=== PATIENT | female | born 1960 | race Caucasian/White ===

== ENCOUNTER 2020-08-15 13:37 | Observation (INO) | payer MEDICARE ==
--- NOTE | 2020-08-15 14:21 | EDM.PDOC ---
ED HPI GENERAL MEDICAL PROBLEM - General Chief Complaint: General Stated Complaint: LETHARGIC Time Seen by Provider: 08/15/20 14:00 Source of Information: Reports: Family, Old Records, RN. Denies: Patient History Limitations: Reports: Other (patient not able to provide any information) - History of Present Illness INITIAL COMMENTS - FREE TEXT/NARRATIVE: 60 yo female s/p liver transplant for autoimmune hepatitis is brought in by her for just under a week of progressive lethargy and confusion. Has a pHx of elevated ammonia levels. is not aware of any black or bloody stools. She had an ERCP procedure at the [facility] this past Sunday and her sx's began after that. The has been in communication with the [facility] since then and was told if she got worse to go to the ER. No fever. Onset: Gradual Onset Date: 08/10/20 Duration: Day(s):, Getting Worse Location: Reports: Generalized Quality: Reports: Other (pain not reported. ) Severity: Severe Improves with: Reports: None Worsens with: Reports: Other (time) Context: Reports: Other (See HPI) Associated Symptoms: Reports: Confusion, Loss of Appetite, Malaise. Denies: Diaphoresis, Fever/Chills, Nausea/Vomiting Treatments REVENUE INSPECTOR: Reports: Other (see below) (none) - Related Data Allergies Allergy/AdvReac Type Severity Reaction Status Date / Time morphine Allergy Other Verified 05/24/15 08:34 Home Meds: Home Meds Alendronate Sodium [Fosamax] 70 mg PO Q7D 05/24/15 [History] Calcium Carbonate/Vitamin D3 [Calcium 600 + Vit D 200] 1 tab PO BID 05/24/15 [History] Magnesium Oxide 800 mg PO BID 05/24/15 [History] Multivitamin with Minerals [Multiple Vitamin] 1 tab PO DAILY 05/24/15 [History] QUEtiapine [SEROquel] 50 mg PO DAILY 05/24/15 [History] Tacrolimus [Prograf] 0.5 mg PO Q12HR 05/24/15 [History] predniSONE [Prednisone] 5 mg PO DAILY 05/24/15 [History] ursodioL [Actigal] 300 mg PO BID 05/24/15 [History] Insulin Glarg,Human.Rec.Analog [Lantus Solostar] 10 units SQ QAM 08/15/20 [History] Insulin Lispro [Humalog] 1 units SQ TIDMEALS 08/15/20 [History] Lactulose 45 ml PO TID 08/15/20 [History] Omeprazole 20 mg PO QAM 08/15/20 [History] Past Medical History Neurological History: Reports: Brain Injury Endocrine/Metabolic History: Reports: Diabetes, Type II Immunologic History: Reports: Solid Organ Transplant Other Immunologic History: LIVER - Infectious Disease History Infectious Disease History: Reports: None - Past Surgical History GI Surgical History: Reports: ERCP Other GI Surgeries/Procedures: liver transplant 17 years ago ercp on 08/09/20 with stents 6 total in last year ED ROS GENERAL - Review of Systems Review Of Systems: See Below Constitutional: Reports: Malaise, Decreased Appetite. Denies: Diaphoresis HEENT: Reports: No Symptoms Respiratory: Reports: No Symptoms Cardiovascular: Reports: No Symptoms Endocrine: Reports: Fatigue GI/Abdominal: Reports: No Symptoms : Reports: No Symptoms Musculoskeletal: Reports: No Symptoms Skin: Reports: No Symptoms Neurological: Reports: Confusion ED EXAM, GENERAL - Physical Exam Exam: See Below Exam Limited By: No Limitations General Appearance: Alert, WD/WN, No Apparent Distress, Lethargic Eye Exam: Bilateral Eye: Normal Inspection Ears: Normal External Exam, Normal Canal, Hearing Grossly Normal. No: Hearing Loss Ear Exam: Bilateral Ear: Auricle Normal, Canal Normal Nose: Normal Inspection, No Blood Throat/Mouth: Normal Inspection, Normal Lips, Normal Oropharynx, Normal Voice, No Airway Compromise Head: Atraumatic, Normocephalic Neck: Normal Inspection Respiratory/Chest: No Respiratory Distress, Lungs Clear, Normal Breath Sounds, No Accessory Muscle Use Cardiovascular: Regular Rate, Rhythm, No Edema GI/Abdominal: Normal Bowel Sounds, Soft, Non-Tender, Distended (mild). No: No Distention, Guarding, Rigid, Rebound, Tender Back Exam: Normal Inspection Extremities: Normal Inspection, Normal Range of Motion, Non-Tender, No Pedal Edema Neurological: CN II-XII Intact, No Motor/Sensory Deficits, Confused, Disoriented, Slow to Respond. No: Oriented, Normal Cognition Psychiatric: Flat Affect. No: Anxious, Tearful Skin Exam: Warm, Dry, Intact, Normal Color, No Rash Course - Vital Signs Text/Narrative:: Case discussed with Dr. Maravilla called at [facility] Dr. Williamson aware. Last Recorded V/S: Last Vital Signs Temp 36.6 C 08/15/20 15:09 Pulse 81 08/15/20 15:09 Resp 16 08/15/20 15:09 BP 140/84 08/15/20 15:09 Pulse Ox 96 08/15/20 15:09 - Orders/Labs/Meds Orders: Active Orders 24 hr Category Date Time Status Lactated Ringers [Ringers, Lactated] 1,000 ml Med 08/15/20 14:45 Active IV ASDIRECTED Medication Orders Lactated Ringer's (Ringers, Lactated) 1,000 mls @ 150 mls/hr IV ASDIRECTED ANA Last Admin: 08/15/20 15:02 Dose: 150 mls/hr Documented by: HEMALATHA Labs: Laboratory Tests 08/15/20 08/15/20 08/15/20 Range/Units 14:16 14:16 14:16 WBC 5.2 (4.5-11.0) K/uL RBC 3.99 (3.30-5.50) M/uL Hgb 12.8 (12.0-15.0) g/dL Hct 39.1 (36.0-48.0) % MCV 98 (80-98) fL MCH 32 H (27-31) pg MCHC 33 (32-36) % Plt Count 115 L (150-400) K/uL Sodium 143 (140-148) mmol/L Potassium 4.3 (3.6-5.2) mmol/L Chloride 104 (100-108) mmol/L Carbon Dioxide 25 (21-32) mmol/L Anion Gap 14.0 (5.0-14.0) mmol/L BUN 23 H (7-18) mg/dL Creatinine 1.6 H (0.6-1.0) mg/dL Est Cr Clr Drug Dosing 27.19 mL/min Estimated GFR (MDRD) 33 L (>60) Glucose 302 H (74-106) mg/dL Calcium 10.1 (8.5-10.1) mg/dL Total Bilirubin 1.9 H (0.2-1.0) mg/dL AST 47 H (15-37) U/L ALT 66 (12-78) U/L Alkaline Phosphatase 331 H (46-116) U/L Ammonia (11-32) umol/L Troponin I < 0.017 (0.000-0.056) ng/mL Total Protein 7.1 (6.4-8.2) g/dL Albumin 3.0 L (3.4-5.0) g/dL Globulin 4.1 H (2.3-3.5) g/dL Albumin/Globulin Ratio 0.7 L (1.2-2.2) TSH, Ultra Sensitive 1.509 (0.358-3.740) uIU/mL Urine Color (YELLOW) Urine Appearance (CLEAR) Urine pH (5.0-8.0) Ur Specific [place] (1.008-1.030) Urine Protein (NEGATIVE) mg/dL Urine Glucose (UA) (NEGATIVE) mg/dL Urine Ketones (NEGATIVE) mg/dL Urine Occult Blood (NEGATIVE) Urine Nitrite (NEGATIVE) Urine Bilirubin (NEGATIVE) Urine Urobilinogen (0.2-1.0) EU/dL Ur Leukocyte Esterase (NEGATIVE) Urine RBC (0-5) Urine WBC (0-5) Ur Epithelial Cells Amorphous Sediment Urine Bacteria Urine Mucus 08/15/20 08/15/20 Range/Units 14:16 14:43 WBC (4.5-11.0) K/uL RBC (3.30-5.50) M/uL Hgb (12.0-15.0) g/dL Hct (36.0-48.0) % MCV (80-98) fL MCH (27-31) pg MCHC (32-36) % Plt Count (150-400) K/uL Sodium (140-148) mmol/L Potassium (3.6-5.2) mmol/L Chloride (100-108) mmol/L Carbon Dioxide (21-32) mmol/L Anion Gap (5.0-14.0) mmol/L BUN (7-18) mg/dL Creatinine (0.6-1.0) mg/dL Est Cr Clr Drug Dosing mL/min Estimated GFR (MDRD) (>60) Glucose (74-106) mg/dL Calcium (8.5-10.1) mg/dL Total Bilirubin (0.2-1.0) mg/dL AST (15-37) U/L ALT (12-78) U/L Alkaline Phosphatase (46-116) U/L Ammonia 114 H (11-32) umol/L Troponin I (0.000-0.056) ng/mL Total Protein (6.4-8.2) g/dL Albumin (3.4-5.0) g/dL Globulin (2.3-3.5) g/dL Albumin/Globulin Ratio (1.2-2.2) TSH, Ultra Sensitive (0.358-3.740) uIU/mL Urine Color Yellow (YELLOW) Urine Appearance Clear (CLEAR) Urine pH 7.0 (5.0-8.0) Ur Specific [place] 1.020 (1.008-1.030) Urine Protein Negative (NEGATIVE) mg/dL Urine Glucose (UA) 100 H (NEGATIVE) mg/dL Urine Ketones Negative (NEGATIVE) mg/dL Urine Occult Blood Negative (NEGATIVE) Urine Nitrite Negative (NEGATIVE) Urine Bilirubin Negative (NEGATIVE) Urine Urobilinogen 1.0 (0.2-1.0) EU/dL Ur Leukocyte Esterase Negative (NEGATIVE) Urine RBC 0-5 (0-5) Urine WBC 0-5 (0-5) Ur Epithelial Cells Rare Amorphous Sediment Moderate Urine Bacteria Rare Urine Mucus Not seen Meds: Medications Generic Name Dose Route Start Last Admin Trade Name Freq PRN Reason Stop Dose Admin Lactated Ringer's 1,000 mls @ 150 mls/hr 08/15/20 14:45 08/15/20 15:02 Ringers, Lactated IV 150 mls/hr ASDIRECTED ANA Administration Departure - Departure Time of Disposition: 15:30 Disposition: Admitted As Inpatient 67 Condition: Fair Clinical Impression: Hyperammonemia, Confusion - Discharge Information *PRESCRIPTION DRUG MONITORING PROGRAM REVIEWED*: Not Applicable *COPY OF PRESCRIPTION DRUG MONITORING REPORT IN PATIENT VIRGILIO: Not Applicable Referrals: Elías Ragsdale NP [Primary Care Provider] - Forms: ED Department Discharge Sepsis Event Note (ED) - Focused Exam Vital Signs: Vital Signs Temp Pulse Resp BP Pulse Ox 08/15/20 15:09 36.6 C 81 16 140/84 96 08/15/20 14:27 36.6 C 86 16 132/93 H 98 08/15/20 14:00 36.6 C 86 16 132/93 H 98 - My Orders Last 24 Hours: My Active Orders 08/15/20 14:45 Lactated Ringers [Ringers, Lactated] 1,000 ml IV ASDIRECTED - Assessment/Plan Last 24 Hours: My Active Orders 08/15/20 14:45 Lactated Ringers [Ringers, Lactated] 1,000 ml IV ASDIRECTED
[2020-08-15] MEDS ORDERED: Lactated Ringers 1,000 ML IV SCH (14:45)
[2020-08-15] MEDS ORDERED: Lactulose Soln 10 GM/15 ML 15 ML UD Cup PO ONE ×2 (15:54→21:00)
--- NOTE | 2020-08-15 16:03 | PCM.HP.2 ---
H&P History of Present Illness - General Date of Service: 08/15/20 Admit Problem/Dx: Admission Diagnosis/Problem Admission Diagnosis/Problem Hepatic encephalopathy Source of Information: Patient, Family, Provider History Limitations: Reports: Altered Mental Status (hepatic encephalopathy) - History of Present Illness Initial Comments - Free Text/Narative: CC: she's been going downhill HPI: Vita presents to the emergency room today with weakness and confusion. She is quite confused and provides only a little bit of the history. Most of the history is gathered from her . He reports that since her ERCP about 1 week ago she has been going downhill with increasing weakness and increasing confusion. She has been having more difficulty getting around and has been sleeping much of the day. Because she sleeps so much her food and fluid intake has gone downhill some but more so over the past 24 hours. Her last bowel movement was about 2 days ago. She has not complained of any nausea and he has not noticed any vomiting. She has not appeared short of breath. He has been checking her temperature periodically and has not measured any fevers. She does complain that she "cannot walk" and that she "cannot see" but is not really able to further describe the symptoms. She does not complain of any abdominal pain. She has not had any skin rashes. She had been getting her medications up until this morning when she refused to take her lactulose. Work-up in the emergency room revealed an ammonia level of 114. Creatinine is up at 1.6 but I am not sure what her baseline is. Bilirubin is 1.9 and alkaline phosphatase is over 300. Her case was discussed with the on-call liver specialist at the [facility]. He recommended hydration and ayaka ating the elevated ammonia level. If she does not improve then additional work- up may be needed and potentially transfer. He did note that they feel her liver transplant has been starting to fail and becoming cirrhotic. - Related Data Allergies/Adverse Reactions: Allergies Allergy/AdvReac Type Severity Reaction Status Date / Time morphine Allergy Other Verified 05/24/15 08:34 Home Medications: Home Meds Alendronate Sodium [Fosamax] 70 mg PO Q7D 05/24/15 [History] Calcium Carbonate/Vitamin D3 [Calcium 600 + Vit D 200] 1 tab PO BID 05/24/15 [History] Magnesium Oxide 800 mg PO BID 05/24/15 [History] Multivitamin with Minerals [Multiple Vitamin] 1 tab PO DAILY 05/24/15 [History] QUEtiapine [SEROquel] 50 mg PO DAILY 05/24/15 [History] Tacrolimus [Prograf] 0.5 mg PO Q12HR 05/24/15 [History] predniSONE [Prednisone] 5 mg PO DAILY 05/24/15 [History] ursodioL [Actigal] 300 mg PO BID 05/24/15 [History] Insulin Glarg,Human.Rec.Analog [Lantus Solostar] 12 units SQ QAM 08/15/20 [History] Insulin Lispro [Humalog] 1 units SQ TIDMEALS 08/15/20 [History] Lactulose 45 ml PO TID 08/15/20 [History] Omeprazole 20 mg PO QAM 08/15/20 [History] Past Medical History Neurological History: Reports: Brain Injury Endocrine/Metabolic History: Reports: Diabetes, Type II Immunologic History: Reports: Solid Organ Transplant Other Immunologic History: LIVER - Infectious Disease History Infectious Disease History: Reports: None - Past Surgical History GI Surgical History: Reports: ERCP Other GI Surgeries/Procedures: liver transplant 17 years ago ercp on 08/09/20 with stents 6 total in last year Social & Family History - Family History GI: Denies: Cirrhosis - Tobacco Use Tobacco Use Status *Q: Former Tobacco User Years of Tobacco use: 25 Used Tobacco, but Quit: Yes Month/Year Tobacco Last Used: 02/2003 - Caffeine Use Caffeine Use: Reports: Coffee - Alcohol Use Alcohol Use History: No - Recreational Drug Use Recreational Drug Use: No H&P Review of Systems - Review of Systems: Review Of Systems: See Below Free Text/Narrative: A complete 12 point review of systems was obtained. Pertinent positives and negatives are noted in the history of present illness. All other systems were reviewed and were negative except as noted. Exam - Exam Exam: See Below - Vital Signs Vital Signs: Last Vital Signs Temp 36.6 C 08/15/20 15:09 Pulse 81 08/15/20 15:09 Resp 16 08/15/20 15:09 BP 140/84 08/15/20 15:09 Pulse Ox 96 08/15/20 15:09 Weight: 52.163 kg - Exam Quality Assessment: No: Supplemental Oxygen General: Alert, Mild Distress. No: Oriented, Cooperative HEENT: Conjunctiva Clear. No: Mucosa Moist & [place] (Dry), Scleral Icterus Neck: Supple, Trachea Midline. No: Lymphadenopathy Lungs: Clear to Auscultation, Normal Respiratory Effort. No: Wheezing Cardiovascular: Regular Rate, Regular Rhythm. No: Systolic Murmur GI/Abdominal Exam: Normal Bowel Sounds, Soft, Non-Tender, No Distention, No Mass. No: Hepatomegaly Back Exam: Normal Inspection, Full Range of Motion, Vertebral Tenderness (Mild mid back. No visible deformity) Extremities: No Pedal Edema. No: Increased Warmth Skin: Warm, Dry, Wound (1 cm scratch left mid josé) Neuro Extensive - Mental Status: Alert, Slow Response to Commands. No: Oriented x3 Neuro Extensive - Motor, Sensory, Reflexes: Other (Unable to assess for asterixis as patient is not cooperative with examination). No: Dysarthria, Abnormal Motor, Tremor Psychiatric: Alert, Normal Affect. No: Agitated - Patient Data Lab Results Last 24 hrs: Laboratory Results - last 24 hr 08/15/20 08/15/20 08/15/20 Range/Units 14:16 14:16 14:16 WBC 5.2 (4.5-11.0) K/uL RBC 3.99 (3.30-5.50) M/uL Hgb 12.8 (12.0-15.0) g/dL Hct 39.1 (36.0-48.0) % MCV 98 (80-98) fL MCH 32 H (27-31) pg MCHC 33 (32-36) % Plt Count 115 L (150-400) K/uL Sodium 143 (140-148) mmol/L Potassium 4.3 (3.6-5.2) mmol/L Chloride 104 (100-108) mmol/L Carbon Dioxide 25 (21-32) mmol/L Anion Gap 14.0 (5.0-14.0) mmol/L BUN 23 H (7-18) mg/dL Creatinine 1.6 H (0.6-1.0) mg/dL Est Cr Clr Drug Dosing 27.19 mL/min Estimated GFR (MDRD) 33 L (>60) Glucose 302 H (74-106) mg/dL Calcium 10.1 (8.5-10.1) mg/dL Total Bilirubin 1.9 H (0.2-1.0) mg/dL AST 47 H (15-37) U/L ALT 66 (12-78) U/L Alkaline Phosphatase 331 H (46-116) U/L Ammonia (11-32) umol/L Troponin I < 0.017 (0.000-0.056) ng/mL Total Protein 7.1 (6.4-8.2) g/dL Albumin 3.0 L (3.4-5.0) g/dL Globulin 4.1 H (2.3-3.5) g/dL Albumin/Globulin Ratio 0.7 L (1.2-2.2) TSH, Ultra Sensitive 1.509 (0.358-3.740) uIU/mL Urine Color (YELLOW) Urine Appearance (CLEAR) Urine pH (5.0-8.0) Ur Specific [place] (1.008-1.030) Urine Protein (NEGATIVE) mg/dL Urine Glucose (UA) (NEGATIVE) mg/dL Urine Ketones (NEGATIVE) mg/dL Urine Occult Blood (NEGATIVE) Urine Nitrite (NEGATIVE) Urine Bilirubin (NEGATIVE) Urine Urobilinogen (0.2-1.0) EU/dL Ur Leukocyte Esterase (NEGATIVE) Urine RBC (0-5) Urine WBC (0-5) Ur Epithelial Cells Amorphous Sediment Urine Bacteria Urine Mucus 08/15/20 08/15/20 Range/Units 14:16 14:43 WBC (4.5-11.0) K/uL RBC (3.30-5.50) M/uL Hgb (12.0-15.0) g/dL Hct (36.0-48.0) % MCV (80-98) fL MCH (27-31) pg MCHC (32-36) % Plt Count (150-400) K/uL Sodium (140-148) mmol/L Potassium (3.6-5.2) mmol/L Chloride (100-108) mmol/L Carbon Dioxide (21-32) mmol/L Anion Gap (5.0-14.0) mmol/L BUN (7-18) mg/dL Creatinine (0.6-1.0) mg/dL Est Cr Clr Drug Dosing mL/min Estimated GFR (MDRD) (>60) Glucose (74-106) mg/dL Calcium (8.5-10.1) mg/dL Total Bilirubin (0.2-1.0) mg/dL AST (15-37) U/L ALT (12-78) U/L Alkaline Phosphatase (46-116) U/L Ammonia 114 H (11-32) umol/L Troponin I (0.000-0.056) ng/mL Total Protein (6.4-8.2) g/dL Albumin (3.4-5.0) g/dL Globulin (2.3-3.5) g/dL Albumin/Globulin Ratio (1.2-2.2) TSH, Ultra Sensitive (0.358-3.740) uIU/mL Urine Color Yellow (YELLOW) Urine Appearance Clear (CLEAR) Urine pH 7.0 (5.0-8.0) Ur Specific [place] 1.020 (1.008-1.030) Urine Protein Negative (NEGATIVE) mg/dL Urine Glucose (UA) 100 H (NEGATIVE) mg/dL Urine Ketones Negative (NEGATIVE) mg/dL Urine Occult Blood Negative (NEGATIVE) Urine Nitrite Negative (NEGATIVE) Urine Bilirubin Negative (NEGATIVE) Urine Urobilinogen 1.0 (0.2-1.0) EU/dL Ur Leukocyte Esterase Negative (NEGATIVE) Urine RBC 0-5 (0-5) Urine WBC 0-5 (0-5) Ur Epithelial Cells Rare Amorphous Sediment Moderate Urine Bacteria Rare Urine Mucus Not seen Result Diagrams: 08/15/20 14:16 08/15/20 14:16 Jonah Results Last 24 hrs: Microbiology 08/15/20 15:15 Stool Occult Blood (JONAH) - Final Stool / Feces - Stool, Formed Sepsis Event Note - Evaluation Sepsis Screening Result: No Definite Risk - Focused Exam Vital Signs: Vital Signs Temp Pulse Resp BP Pulse Ox 08/15/20 15:09 36.6 C 81 16 140/84 96 08/15/20 14:27 36.6 C 86 16 132/93 H 98 08/15/20 14:00 36.6 C 86 16 132/93 H 98 *Q Meaningful Use (ADM) - VTE Risk Assess *Q Each Risk Factor Represents 1 Point: Age 41 - 59 years Total Score 1 Point Risk Factors: 1 Each Risk Factor Represents 2 Points: None Total Score 2 Point Risk Factors: 0 Each Risk Factor Represents 3 Points: None Total Score 3 Point Risk Factors: 0 Each Risk Factor Represents 5 Points: None Total Score 5 Point Risk Factors: 0 Venous Thromboembolism Risk Factor Score *Q: 1 - Problem List (1) Hyperammonemia SNOMED Code(s): 1500139 ICD Code: E72.20 - DISORDER OF UREA CYCLE METABOLISM, UNSPECIFIED Status: Acute Current Visit: Yes (2) Acute hypoactive delirium due to another medical condition SNOMED Code(s): 1581262, 174290027, 949780241 ICD Code: F05 - DELIRIUM DUE TO KNOWN PHYSIOLOGICAL CONDITION Status: Acute Current Visit: Yes (3) Autoimmune hepatitis SNOMED Code(s): 416573108 ICD Code: K75.4 - AUTOIMMUNE HEPATITIS Status: Chronic Current Visit: Yes (4) Diabetes mellitus, insulin dependent (IDDM), controlled SNOMED Code(s): 40245781, 325471180, 202222329 ICD Code: HHW2077 - Status: Chronic Current Visit: Yes Problem List Initiated/Reviewed/Updated: Yes Orders Last 24hrs: Active Orders 24 hr Category Date Time Status Patient Status Manage Transfer [TRANSFER] Routine ADT 08/15/20 15:56 Ordered Lactated Ringers [Ringers, Lactated] 1,000 ml Med 08/15/20 14:45 Active IV ASDIRECTED Resuscitation Status Routine Resus Stat 08/15/20 15:58 Ordered Medication Orders Lactated Ringer's (Ringers, Lactated) 1,000 mls @ 150 mls/hr IV ASDIRECTED ANA Last Admin: 08/15/20 15:02 Dose: 150 mls/hr Documented by: HEMALATHA Assessment/Plan Comment:: ASSESSMENT AND PLAN - Hypoactive delirium-ammonia level elevated and I suspect this is the culprit. Transplant team reports that her transplant is starting to become cirrhotic. She is already on pretty good-sized doses of lactulose. No evidence for infection that I can find. She may be a little dehydrated. Hemoccult is positive but hemoglobin is normal so I doubt she has a clinically significant GI bleed. She did have an ERCP 1 week ago but hepatic panel numbers are not very impressive. She has been taking medications other than lactulose this morning. -IV fluids overnight -40 g of lactulose now and again tonight -Repeat ammonia level in the morning -Anticipate transition to previous dosing tomorrow morning -Consider additional work-up such as CT scan if not improving Insulin-dependent diabetes mellitus-moderate elevation of blood sugar at this time. Sugars are normally fairly well controlled. -Continue home dose of Lantus -6 units of short acting insulin with meals -Sliding scale insulin History of autoimmune hepatitis-liver transplant about 17 years ago. 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 -Continue immunosuppression -Outpatient follow-up with the [facility] Maintenance issues - -DVT prophylaxis-mechanical -GI prophylaxis-PPI -[id number] -Tate catheter-not indicated CODE STATUS -DNR/DNI Admission justification -this patient will be admitted for observation for titration of lactulose and repeat ammonia monitoring. Disposition -I anticipate discharge home after the hospital stay Primary care physician -liver transplant service through the [facility] Nomi Willimason M.D. - Mortality Measure Prognosis:: Good
[2020-08-15] MEDS ORDERED: Albuterol 0.083% 2.5 MG/3 ML Neb Soln NEB PRN (16:27)
[2020-08-15] MEDS ORDERED: Ondansetron 4 MG Tab.DIS PO PRN (16:27)
[2020-08-15] MEDS ORDERED: Haloperidol Lactate 5 MG/ML SDV IVPUSH PRN (16:27)
[2020-08-15] MEDS ORDERED: Acetaminophen 325 MG Tab PO PRN (16:27)
[2020-08-15] MEDS ORDERED: Tacrolimus 0.5 MG Cap PO SCH (16:27)
[2020-08-15] MEDS ORDERED: Ondansetron 4 MG/2 ML SDV IV PRN (16:27)
[2020-08-15] MEDS ORDERED: Insulin Lispro 100 Unit/ML 3 ML KwikPen SUBCUT SCH (17:00)
[2020-08-15] MEDS ORDERED: LACTULOSE 10 GM/15 ML PO ONE ×2 (17:45→21:00)
[2020-08-15] MEDS ORDERED: Pantoprazole 40 MG Vial IV ONE (18:00)
[2020-08-15] MEDS: Insulin Lispro 100 Unit/ML 3 ML KwikPen SUBCUT SCH ×2 (18:24→20:41)
[2020-08-15] MEDS: Insulin Lispro 100 Unit/ML 3 ML KwikPen*PT OWN MED SUBCUT SCH ×4 (18:37→21:15)
[2020-08-15] MEDS ORDERED: TACROLIMUS 0.5 MG PO SCH (20:30)
[2020-08-15] MEDS: Magnesium Oxide 400 MG Tab PO SCH (21:01)
[2020-08-15] MEDS: Calcium Carbonate/Vitamin D3 1500 MG-400 Units Tab PO SCH (21:01)
[2020-08-15] MEDS: Melatonin 3 MG Tab PO SCH (21:04)
[2020-08-15] MEDS: Lactated Ringers 1,000 ML IV SCH (22:31)
[2020-08-16] MEDS: Lactated Ringers 1,000 ML IV SCH (06:08)
[2020-08-16] MEDS ORDERED: Pantoprazole 40 MG Tab.CR PO SCH (07:30)
[2020-08-16] MEDS: Insulin Lispro 100 Unit/ML 3 ML KwikPen*PT OWN MED SUBCUT SCH ×2 (07:49)
[2020-08-16] MEDS: Multivitamins with Iron/Calcium/Folic Acid/Minerals Tab PO SCH (08:53)
[2020-08-16] MEDS: Calcium Carbonate/Vitamin D3 1500 MG-400 Units Tab PO SCH ×2 (08:53→22:01)
[2020-08-16] MEDS: Magnesium Oxide 400 MG Tab PO SCH ×2 (08:53→21:58)
[2020-08-16] MEDS: OMEPRAZOLE 20 MG CAP *PT OWN MED PO SCH (08:53)
[2020-08-16] MEDS: Insulin Glargine,Human Rec. Analog 100 Units/ML 3 ML Pen SUBCUT SCH (08:55)
[2020-08-16] MEDS: predniSONE 5 MG **PTOM PO SCH (08:56)
[2020-08-16] MEDS: TACROLIMUS 0.5 MG PO SCH ×2 (08:57→21:59)
[2020-08-16] MEDS ORDERED: Lactulose Soln 10 GM/15 ML 15 ML UD Cup PO SCH (09:00)
[2020-08-16] MEDS ORDERED: INSULIN GLARGINE HUMAN REC ANALOG 100 UNIT/ML SUBCUT SCH (09:00)
[2020-08-16] MEDS ORDERED: LACTULOSE 10 GM/15 ML PO SCH ×2 (09:00)
[2020-08-16] MEDS ORDERED: QUEtiapine 25 MG Tab PO SCH (09:00)
[2020-08-16] MEDS ORDERED: Insulin Glargine,Human Rec. Analog 100 Units/ML 3 ML Pen SUBCUT SCH (09:00)
[2020-08-16] MEDS ORDERED: PREDNISONE 5 MG PO SCH (09:00)
[2020-08-16] MEDS ORDERED: predniSONE 5 MG Tab PO SCH (09:00)
[2020-08-16] MEDS: LACTULOSE 10 GM/15 ML PO SCH ×3 (09:41→21:58)
--- NOTE | 2020-08-16 11:12 | PCM.PN ---
- General Info Date of Service: 08/16/20 Subjective Update: Ms. Catherine has remained lethargic and confused since admission yesterday. She has received extra lactulose with no improvement in encephalopathy or ammonia level. She is unable to provide a meaningful history concerning symptoms or review of systems because of the encephalopathy. - Patient Data Vitals - Most Recent: Last Vital Signs Temp 97.3 F 08/16/20 09:17 Pulse 86 08/16/20 09:17 Resp 16 08/16/20 09:17 BP 110/82 08/16/20 09:17 Pulse Ox 99 08/16/20 09:17 Weight - Most Recent: 117 lb 4.575 oz I&O - Last 24 Hours: Intake & Output 08/15/20 08/16/20 08/16/20 22:59 06:59 14:59 Intake Total 120 1386 360 Output Total 80 1050 Balance -66$ 336 376 Lab Results Last 24 Hours: Laboratory Results - last 24 hr 08/15/20 08/15/20 08/15/20 Range/Units 14:16 14:16 14:16 WBC 5.2 (4.5-11.0) K/uL RBC 3.99 (3.30-5.50) M/uL Hgb 12.8 (12.0-15.0) g/dL Hct 39.1 (36.0-48.0) % MCV 98 (80-98) fL MCH 32 H (27-31) pg MCHC 33 (32-36) % Plt Count 115 L (150-400) K/uL PT (9.5-12.0) sec INR (0.80-1.20) Sodium 143 (140-148) mmol/L Potassium 4.3 (3.6-5.2) mmol/L Chloride 104 (100-108) mmol/L Carbon Dioxide 25 (21-32) mmol/L Anion Gap 14.0 (5.0-14.0) mmol/L BUN 23 H (7-18) mg/dL Creatinine 1.6 H (0.6-1.0) mg/dL Est Cr Clr Drug Dosing 27.19 mL/min Estimated GFR (MDRD) 33 L (>60) Glucose 302 H (74-106) mg/dL POC Glucose (74-106) mg/dL Calcium 10.1 (8.5-10.1) mg/dL Total Bilirubin 1.9 H (0.2-1.0) mg/dL AST 47 H (15-37) U/L ALT 66 (12-78) U/L Alkaline Phosphatase 331 H (46-116) U/L Ammonia (11-32) umol/L Troponin I < 0.017 (0.000-0.056) ng/mL Total Protein 7.1 (6.4-8.2) g/dL Albumin 3.0 L (3.4-5.0) g/dL Globulin 4.1 H (2.3-3.5) g/dL Albumin/Globulin Ratio 0.7 L (1.2-2.2) TSH, Ultra Sensitive 1.509 (0.358-3.740) uIU/mL Urine Color (YELLOW) Urine Appearance (CLEAR) Urine pH (5.0-8.0) Ur Specific Sibley (1.008-1.030) Urine Protein (NEGATIVE) mg/dL Urine Glucose (UA) (NEGATIVE) mg/dL Urine Ketones (NEGATIVE) mg/dL Urine Occult Blood (NEGATIVE) Urine Nitrite (NEGATIVE) Urine Bilirubin (NEGATIVE) Urine Urobilinogen (0.2-1.0) EU/dL Ur Leukocyte Esterase (NEGATIVE) Urine RBC (0-5) Urine WBC (0-5) Ur Epithelial Cells Amorphous Sediment Urine Bacteria Urine Mucus 08/15/20 08/15/20 08/15/20 Range/Units 14:16 14:43 16:37 WBC (4.5-11.0) K/uL RBC (3.30-5.50) M/uL Hgb (12.0-15.0) g/dL Hct (36.0-48.0) % MCV (80-98) fL MCH (27-31) pg MCHC (32-36) % Plt Count (150-400) K/uL PT (9.5-12.0) sec INR (0.80-1.20) Sodium (140-148) mmol/L Potassium (3.6-5.2) mmol/L Chloride (100-108) mmol/L Carbon Dioxide (21-32) mmol/L Anion Gap (5.0-14.0) mmol/L BUN (7-18) mg/dL Creatinine (0.6-1.0) mg/dL Est Cr Clr Drug Dosing mL/min Estimated GFR (MDRD) (>60) Glucose (74-106) mg/dL POC Glucose 249 H (74-106) mg/dL Calcium (8.5-10.1) mg/dL Total Bilirubin (0.2-1.0) mg/dL AST (15-37) U/L ALT (12-78) U/L Alkaline Phosphatase (46-116) U/L Ammonia 114 H (11-32) umol/L Troponin I (0.000-0.056) ng/mL Total Protein (6.4-8.2) g/dL Albumin (3.4-5.0) g/dL Globulin (2.3-3.5) g/dL Albumin/Globulin Ratio (1.2-2.2) TSH, Ultra Sensitive (0.358-3.740) uIU/mL Urine Color Yellow (YELLOW) Urine Appearance Clear (CLEAR) Urine pH 7.0 (5.0-8.0) Ur Specific Sibley 1.020 (1.008-1.030) Urine Protein Negative (NEGATIVE) mg/dL Urine Glucose (UA) 100 H (NEGATIVE) mg/dL Urine Ketones Negative (NEGATIVE) mg/dL Urine Occult Blood Negative (NEGATIVE) Urine Nitrite Negative (NEGATIVE) Urine Bilirubin Negative (NEGATIVE) Urine Urobilinogen 1.0 (0.2-1.0) EU/dL Ur Leukocyte Esterase Negative (NEGATIVE) Urine RBC 0-5 (0-5) Urine WBC 0-5 (0-5) Ur Epithelial Cells Rare Amorphous Sediment Moderate Urine Bacteria Rare Urine Mucus Not seen 08/15/20 08/16/20 08/16/20 Range/Units 20:44 05:17 05:17 WBC 5.4 (4.5-11.0) K/uL RBC 3.45 (3.30-5.50) M/uL Hgb 11.5 L (12.0-15.0) g/dL Hct 33.8 L (36.0-48.0) % MCV 98 (80-98) fL MCH 33 H (27-31) pg MCHC 34 (32-36) % Plt Count 106 L (150-400) K/uL PT 11.3 (9.5-12.0) sec INR 1.04 (0.80-1.20) Sodium (140-148) mmol/L Potassium (3.6-5.2) mmol/L Chloride (100-108) mmol/L Carbon Dioxide (21-32) mmol/L Anion Gap (5.0-14.0) mmol/L BUN (7-18) mg/dL Creatinine (0.6-1.0) mg/dL Est Cr Clr Drug Dosing mL/min Estimated GFR (MDRD) (>60) Glucose (74-106) mg/dL POC Glucose 358 H (74-106) mg/dL Calcium (8.5-10.1) mg/dL Total Bilirubin (0.2-1.0) mg/dL AST (15-37) U/L ALT (12-78) U/L Alkaline Phosphatase (46-116) U/L Ammonia (11-32) umol/L Troponin I (0.000-0.056) ng/mL Total Protein (6.4-8.2) g/dL Albumin (3.4-5.0) g/dL Globulin (2.3-3.5) g/dL Albumin/Globulin Ratio (1.2-2.2) TSH, Ultra Sensitive (0.358-3.740) uIU/mL Urine Color (YELLOW) Urine Appearance (CLEAR) Urine pH (5.0-8.0) Ur Specific Sibley (1.008-1.030) Urine Protein (NEGATIVE) mg/dL Urine Glucose (UA) (NEGATIVE) mg/dL Urine Ketones (NEGATIVE) mg/dL Urine Occult Blood (NEGATIVE) Urine Nitrite (NEGATIVE) Urine Bilirubin (NEGATIVE) Urine Urobilinogen (0.2-1.0) EU/dL Ur Leukocyte Esterase (NEGATIVE) Urine RBC (0-5) Urine WBC (0-5) Ur Epithelial Cells Amorphous Sediment Urine Bacteria Urine Mucus 08/16/20 08/16/20 08/16/20 Range/Units 05:17 05:17 07:29 WBC (4.5-11.0) K/uL RBC (3.30-5.50) M/uL Hgb (12.0-15.0) g/dL Hct (36.0-48.0) % MCV (80-98) fL MCH (27-31) pg MCHC (32-36) % Plt Count (150-400) K/uL PT (9.5-12.0) sec INR (0.80-1.20) Sodium 146 (140-148) mmol/L Potassium 3.9 (3.6-5.2) mmol/L Chloride 108 (100-108) mmol/L Carbon Dioxide 26 (21-32) mmol/L Anion Gap 12.3 (5.0-14.0) mmol/L BUN 17 (7-18) mg/dL Creatinine 1.5 H (0.6-1.0) mg/dL Est Cr Clr Drug Dosing 29.01 mL/min Estimated GFR (MDRD) 36 L (>60) Glucose 280 H (74-106) mg/dL POC Glucose 274 H (74-106) mg/dL Calcium 8.9 (8.5-10.1) mg/dL Total Bilirubin 1.5 H (0.2-1.0) mg/dL AST 39 H (15-37) U/L ALT 55 (12-78) U/L Alkaline Phosphatase 282 H (46-116) U/L Ammonia 114 H (11-32) umol/L Troponin I (0.000-0.056) ng/mL Total Protein 6.0 L (6.4-8.2) g/dL Albumin 2.4 L (3.4-5.0) g/dL Globulin 3.6 H (2.3-3.5) g/dL Albumin/Globulin Ratio 0.7 L (1.2-2.2) TSH, Ultra Sensitive (0.358-3.740) uIU/mL Urine Color (YELLOW) Urine Appearance (CLEAR) Urine pH (5.0-8.0) Ur Specific Sibley (1.008-1.030) Urine Protein (NEGATIVE) mg/dL Urine Glucose (UA) (NEGATIVE) mg/dL Urine Ketones (NEGATIVE) mg/dL Urine Occult Blood (NEGATIVE) Urine Nitrite (NEGATIVE) Urine Bilirubin (NEGATIVE) Urine Urobilinogen (0.2-1.0) EU/dL Ur Leukocyte Esterase (NEGATIVE) Urine RBC (0-5) Urine WBC (0-5) Ur Epithelial Cells Amorphous Sediment Urine Bacteria Urine Mucus Jonah Results Last 24 Hours: Microbiology 08/15/20 15:15 Stool Occult Blood (JONAH) - Final Stool / Feces - Stool, Formed Med Orders - Current: Current Medications Acetaminophen (Acetaminophen 325 Mg Tab) 650 mg PO Q4H PRN PRN Reason: Pain (Mild 1-3)/fever Albuterol (Albuterol 0.083% 2.5 Mg/3 Ml Neb Soln) 2.5 mg NEB Q4H PRN PRN Reason: Shortness Of Breath/wheezing Calcium Carbonate (Calcium Carbonate/Vitamin D3 1500 Mg-400 Units Tab) 1 tab PO BID [facility] Last Admin: 08/16/20 08:53 Dose: 1 tab Documented by: Haloperidol Lactate (Haloperidol Lactate 5 Mg/Ml Sdv) 1 mg IVPUSH Q4H PRN PRN Reason: Agitation Last Admin: 08/15/20 23:29 Dose: 1 mg Documented by: Insulin Glargine (Insulin Glargine,Human Rec. Analog 100 Units/Ml 3 Ml Pen) 12 units SUBCUT QAM [facility] Last Admin: 08/16/20 08:55 Dose: 12 unit Documented by: Insulin Human Lispro (Insulin Lispro 100 Unit/Ml 3 Ml Kwikpen) 6 unit SUBCUT TIDMEALS [facility] Insulin Human Lispro (Insulin Lispro 100 Unit/Ml 3 Ml Kwikpen) 0 unit SUBCUT QIDACANDBED [facility]; Protocol Lactulose (Lactulose Soln 10 Gm/15 Ml Ptom) 60 gm PO TID [facility] Last Admin: 08/16/20 09:41 Dose: 60 gm Documented by: Magnesium Oxide (Magnesium Oxide 400 Mg Tab) 800 mg PO BID [facility] Last Admin: 08/16/20 08:53 Dose: 800 mg Documented by: Melatonin (Melatonin 3 Mg Tab) 9 mg PO BEDTIME [facility] Last Admin: 08/15/20 21:04 Dose: 9 mg Documented by: Multivitamins/Minerals (Multivitamins With Iron/Calcium/Folic Acid/Minerals Tab) 1 tab PO DAILY [facility] Last Admin: 08/16/20 08:53 Dose: 1 tab Documented by: Ondansetron HCl (Ondansetron 4 Mg/2 Ml Sdv) 4 mg IV Q6H PRN PRN Reason: Nausea/Vomiting Ondansetron HCl (Ondansetron 4 Mg Tab.Dis) 4 mg PO Q6H PRN PRN Reason: Nausea able to take PO Ursodiol 300 Mg (Ptom) 0 each PO BID [facility] Last Admin: 08/16/20 08:57 Dose: 1 each Documented by: Omeprazole 20 Mg Cap (*Pt Own Med*) 0 each PO ACBREAKFAST [facility] Last Admin: 08/16/20 08:53 Dose: 1 each Documented by: Seroquel 50 Mg (Ptom) 0 each PO BEDTIME ANA Prednisone (Prednisone 5 Mg Ptom) 5 mg PO DAILY [facility] Last Admin: 08/16/20 08:56 Dose: 5 mg Documented by: Tacrolimus (Tacrolimus 0.5 Mg Ptom) 0.5 mg PO BID [facility] Last Admin: 08/16/20 08:57 Dose: 0.5 mg Documented by: Discontinued Medications Lactated Ringer's (Ringers, Lactated) 1,000 mls @ 150 mls/hr IV ASDIRECTED [facility] Last Admin: 08/15/20 15:02 Dose: 150 mls/hr Documented by: Lactated Ringer's (Ringers, Lactated) 1,000 mls @ 125 mls/hr IV ASDIRECTED [facility] Last Admin: 08/16/20 06:08 Dose: 125 mls/hr Documented by: Insulin Glargine (Insulin Glargine,Human Rec. Analog 100 Units/Ml 3 Ml Pen) 12 units SUBCUT QAM [facility] Insulin Human Lispro (Insulin Lispro 100 Unit/Ml 3 Ml Kwikpen) 6 unit SUBCUT TIDMEALS [facility] Last Admin: 08/15/20 20:41 Dose: Not Given Documented by: Insulin Human Lispro (Insulin Lispro 100 Unit/Ml 3 Ml Kwikpen) 0 unit SUBCUT QIDACANDBED [facility]; Protocol Last Admin: 08/15/20 20:40 Dose: Not Given Documented by: Lactulose (Lactulose Soln 10 Gm/15 Ml 15 Ml Ud Cup) 30 gm PO TID [facility] Lactulose (Lactulose Soln 10 Gm/15 Ml 15 Ml Ud Cup) 40 gm PO ONETIME ONE Stop: 08/15/20 21:01 Lactulose (Lactulose Soln 10 Gm/15 Ml Ptom) 30 gm PO TID [facility] Pantoprazole Sodium (Pantoprazole 40 Mg Tab.Cr) 40 mg PO ACBREAKFAST [facility] Pantoprazole Sodium (Pantoprazole 40 Mg Vial) 40 mg IV ONETIME ONE Stop: 08/15/20 18:01 Last Admin: 08/15/20 18:30 Dose: 40 mg Documented by: Tacrolimus 0.5 Mg (Cap*Pt Own Med*) 0 each PO Q12H [facility] Last Admin: 08/15/20 20:58 Dose: 1 each Documented by: Lactulose Soln 10 Gm (/15 Ml *Pt Own Med*) 0 each PO ONETIME ONE Stop: 08/15/20 21:01 Last Admin: 08/15/20 21:12 Dose: 1 each Documented by: Lactulose Soln 10 Gm (/15 Ml *Pt Own Med*) 0 each PO ONETIME ONE Stop: 08/15/20 17:46 Last Admin: 08/15/20 18:39 Dose: 40 each Documented by: Insulin Lispro 100 Unit/Ml 3 Ml Kwikpen *Pt Own Med* 0 each SUBCUT TIDMEALS [facility] Last Admin: 08/16/20 07:49 Dose: 6 each Documented by: Insulin Lispro 100 Unit/Ml 3 Ml Kwikpen *Pt Own Med* 0 each SUBCUT QIDACANDBED [facility]; Protocol Last Admin: 08/16/20 07:49 Dose: 3 each Documented by: Prednisone (Prednisone 5 Mg Tab) 5 mg PO DAILY [facility] Quetiapine Fumarate (Quetiapine 25 Mg Tab) 50 mg PO DAILY [facility] Tacrolimus (Tacrolimus 0.5 Mg Cap) 0.5 mg PO BID [facility] Last Admin: 08/15/20 19:27 Dose: Not Given Documented by: - Exam Urinary Catheter Total Time: 0Days 14Hours General: Lethargic Lungs: Clear to Auscultation, Normal Respiratory Effort Cardiovascular: Regular Rate, Regular Rhythm, No Murmurs GI/Abdominal Exam: Soft, Non-Tender, No Organomegaly, No Distention Extremities: Non-Tender, No Pedal Edema - Patient Data Lab Results Last 24 hrs: Laboratory Results - last 24 hr 08/15/20 08/15/20 08/15/20 Range/Units 14:16 14:16 14:16 WBC 5.2 (4.5-11.0) K/uL RBC 3.99 (3.30-5.50) M/uL Hgb 12.8 (12.0-15.0) g/dL Hct 39.1 (36.0-48.0) % MCV 98 (80-98) fL MCH 32 H (27-31) pg MCHC 33 (32-36) % Plt Count 115 L (150-400) K/uL PT (9.5-12.0) sec INR (0.80-1.20) Sodium 143 (140-148) mmol/L Potassium 4.3 (3.6-5.2) mmol/L Chloride 104 (100-108) mmol/L Carbon Dioxide 25 (21-32) mmol/L Anion Gap 14.0 (5.0-14.0) mmol/L BUN 23 H (7-18) mg/dL Creatinine 1.6 H (0.6-1.0) mg/dL Est Cr Clr Drug Dosing 27.19 mL/min Estimated GFR (MDRD) 33 L (>60) Glucose 302 H (74-106) mg/dL POC Glucose (74-106) mg/dL Calcium 10.1 (8.5-10.1) mg/dL Total Bilirubin 1.9 H (0.2-1.0) mg/dL AST 47 H (15-37) U/L ALT 66 (12-78) U/L Alkaline Phosphatase 331 H (46-116) U/L Ammonia (11-32) umol/L Troponin I < 0.017 (0.000-0.056) ng/mL Total Protein 7.1 (6.4-8.2) g/dL Albumin 3.0 L (3.4-5.0) g/dL Globulin 4.1 H (2.3-3.5) g/dL Albumin/Globulin Ratio 0.7 L (1.2-2.2) TSH, Ultra Sensitive 1.509 (0.358-3.740) uIU/mL Urine Color (YELLOW) Urine Appearance (CLEAR) Urine pH (5.0-8.0) Ur Specific Sibley (1.008-1.030) Urine Protein (NEGATIVE) mg/dL Urine Glucose (UA) (NEGATIVE) mg/dL Urine Ketones (NEGATIVE) mg/dL Urine Occult Blood (NEGATIVE) Urine Nitrite (NEGATIVE) Urine Bilirubin (NEGATIVE) Urine Urobilinogen (0.2-1.0) EU/dL Ur Leukocyte Esterase (NEGATIVE) Urine RBC (0-5) Urine WBC (0-5) Ur Epithelial Cells Amorphous Sediment Urine Bacteria Urine Mucus 0508/15/20 08/15/20 Range/Units 14:16 14:43 16:37 WBC (4.5-11.0) K/uL RBC (3.30-5.50) M/uL Hgb (12.0-15.0) g/dL Hct (36.0-48.0) % MCV (80-98) fL MCH (27-31) pg MCHC (32-36) % Plt Count (150-400) K/uL PT (9.5-12.0) sec INR (0.80-1.20) Sodium (140-148) mmol/L Potassium (3.6-5.2) mmol/L Chloride (100-108) mmol/L Carbon Dioxide (21-32) mmol/L Anion Gap (5.0-14.0) mmol/L BUN (7-18) mg/dL Creatinine (0.6-1.0) mg/dL Est Cr Clr Drug Dosing mL/min Estimated GFR (MDRD) (>60) Glucose (74-106) mg/dL POC Glucose 249 H (74-106) mg/dL Calcium (8.5-10.1) mg/dL Total Bilirubin (0.2-1.0) mg/dL AST (15-37) U/L ALT (12-78) U/L Alkaline Phosphatase (46-116) U/L Ammonia 114 H (11-32) umol/L Troponin I (0.000-0.056) ng/mL Total Protein (6.4-8.2) g/dL Albumin (3.4-5.0) g/dL Globulin (2.3-3.5) g/dL Albumin/Globulin Ratio (1.2-2.2) TSH, Ultra Sensitive (0.358-3.740) uIU/mL Urine Color Yellow (YELLOW) Urine Appearance Clear (CLEAR) Urine pH 7.0 (5.0-8.0) Ur Specific S[place]y 1.020 (1.008-1.030) Urine Protein Negative (NEGATIVE) mg/dL Urine Glucose (UA) 100 H (NEGATIVE) mg/dL Urine Ketones Negative (NEGATIVE) mg/dL Urine Occult Blood Negative (NEGATIVE) Urine Nitrite Negative (NEGATIVE) Urine Bilirubin Negative (NEGATIVE) Urine Urobilinogen 1.0 (0.2-1.0) EU/dL Ur Leukocyte Esterase Negative (NEGATIVE) Urine RBC 0-5 (0-5) Urine WBC 0-5 (0-5) Ur Epithelial Cells Rare Amorphous Sediment Moderate Urine Bacteria Rare Urine Mucus Not seen 08/15/20 08/16/20 08/16/20 Range/Units 20:44 05:17 05:17 WBC 5.4 (4.5-11.0) K/uL RBC 3.45 (3.30-5.50) M/uL Hgb 11.5 L (12.0-15.0) g/dL Hct 33.8 L (36.0-48.0) % MCV 98 (80-98) fL MCH 33 H (27-31) pg MCHC 34 (32-36) % Plt Count 106 L (150-400) K/uL PT 11.3 (9.5-12.0) sec INR 1.04 (0.80-1.20) Sodium (140-148) mmol/L Potassium (3.6-5.2) mmol/L Chloride (100-108) mmol/L Carbon Dioxide (21-32) mmol/L Anion Gap (5.0-14.0) mmol/L BUN (7-18) mg/dL Creatinine (0.6-1.0) mg/dL Est Cr Clr Drug Dosing mL/min Estimated GFR (MDRD) (>60) Glucose (74-106) mg/dL POC Glucose 358 H (74-106) mg/dL Calcium (8.5-10.1) mg/dL Total Bilirubin (0.2-1.0) mg/dL AST (15-37) U/L ALT (12-78) U/L Alkaline Phosphatase (46-116) U/L Ammonia (11-32) umol/L Troponin I (0.000-0.056) ng/mL Total Protein (6.4-8.2) g/dL Albumin (3.4-5.0) g/dL Globulin (2.3-3.5) g/dL Albumin/Globulin Ratio (1.2-2.2) TSH, Ultra Sensitive (0.358-3.740) uIU/mL Urine Color (YELLOW) Urine Appearance (CLEAR) Urine pH (5.0-8.0) Ur Specific Sibley (1.008-1.030) Urine Protein (NEGATIVE) mg/dL Urine Glucose (UA) (NEGATIVE) mg/dL Urine Ketones (NEGATIVE) mg/dL Urine Occult Blood (NEGATIVE) Urine Nitrite (NEGATIVE) Urine Bilirubin (NEGATIVE) Urine Urobilinogen (0.2-1.0) EU/dL Ur Leukocyte Esterase (NEGATIVE) Urine RBC (0-5) Urine WBC (0-5) Ur Epithelial Cells Amorphous Sediment Urine Bacteria Urine Mucus 08/16/20 08/16/20 08/16/20 Range/Units 05:17 05:17 07:29 WBC (4.5-11.0) K/uL RBC (3.30-5.50) M/uL Hgb (12.0-15.0) g/dL Hct (36.0-48.0) % MCV (80-98) fL MCH (27-31) pg MCHC (32-36) % Plt Count (150-400) K/uL PT (9.5-12.0) sec INR (0.80-1.20) Sodium 146 (140-148) mmol/L Potassium 3.9 (3.6-5.2) mmol/L Chloride 108 (100-108) mmol/L Carbon Dioxide 26 (21-32) mmol/L Anion Gap 12.3 (5.0-14.0) mmol/L BUN 17 (7-18) mg/dL Creatinine 1.5 H (0.6-1.0) mg/dL Est Cr Clr Drug Dosing 29.01 mL/min Estimated GFR (MDRD) 36 L (>60) Glucose 280 H (74-106) mg/dL POC Glucose 274 H (74-106) mg/dL Calcium 8.9 (8.5-10.1) mg/dL Total Bilirubin 1.5 H (0.2-1.0) mg/dL AST 39 H (15-37) U/L ALT 55 (12-78) U/L Alkaline Phosphatase 282 H (46-116) U/L Ammonia 114 H (11-32) umol/L Troponin I (0.000-0.056) ng/mL Total Protein 6.0 L (6.4-8.2) g/dL Albumin 2.4 L (3.4-5.0) g/dL Globulin 3.6 H (2.3-3.5) g/dL Albumin/Globulin Ratio 0.7 L (1.2-2.2) TSH, Ultra Sensitive (0.358-3.740) uIU/mL Urine Color (YELLOW) Urine Appearance (CLEAR) Urine pH (5.0-8.0) Ur Specific Sibley (1.008-1.030) Urine Protein (NEGATIVE) mg/dL Urine Glucose (UA) (NEGATIVE) mg/dL Urine Ketones (NEGATIVE) mg/dL Urine Occult Blood (NEGATIVE) Urine Nitrite (NEGATIVE) Urine Bilirubin (NEGATIVE) Urine Urobilinogen (0.2-1.0) EU/dL Ur Leukocyte Esterase (NEGATIVE) Urine RBC (0-5) Urine WBC (0-5) Ur Epithelial Cells Amorphous Sediment Urine Bacteria Urine Mucus Result Diagrams: 08/16/20 05:17 08/16/20 05:17 Jonah Results Last 24 hrs: Microbiology 08/15/20 15:15 Stool Occult Blood (JONAH) - Final Stool / Feces - Stool, Formed Sepsis Event Note - Evaluation Sepsis Screening Result: No Definite Risk - Focused Exam Vital Signs: Vital Signs Temp Pulse Resp BP Pulse Ox 08/16/20 09:17 97.3 F 86 16 110/82 99 08/16/20 02:09 97.3 F 77 16 142/72 H 95 - Problem List Review Problem List Initiated/Reviewed/Updated: Yes - My Orders Last 24 Hours: My Active Orders 08/16/20 09:00 Lactulose [Chronulac] 60 gm PO TID 08/16/20 09:55 Consult to Dietary [Consult to P[employer] Systems Mechanic] [CONS] Routine 08/16/20 11:15 Sodium Chloride 0.9% @ 50 MLS/HR(1000ml) Sodium Chloride 0.9% [Normal Saline] 1,000 ml IV ASDIRECTED 08/17/20 05:00 CBC WITH AUTO DIFF [HEME] Timed COMPREHENSIVE METABOLIC PN,CMP [CHEM] Timed 08/17/20 05:11 AMMONIA VENOUS [CHEM] AM - Plan Plan:: ASSESSMENT AND PLAN Hypoactive delirium-likely secondary to hepatic encephalopathy. Remains lethargic and confused, no improvement in ammonia level -Decrease IV rate to 50 cc/h -Lactulose 63 times daily -Repeat ammonia level in the morning -Consider additional work-up such as CT scan if not improving Insulin-dependent diabetes mellitus-moderate elevation of blood sugar at this time. Sugars are normally fairly well controlled. -Continue home dose of Lantus -6 units of short acting insulin with meals -Sliding scale insulin History of autoimmune hepatitis-liver transplant about 17 years ago. 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 -Continue immunosuppression -Outpatient follow-up with the [facility] Maintenance issues - -DVT prophylaxis-mechanical -GI prophylaxis-PPI -[id number] -Tate catheter-not indicated CODE STATUS -DNR/DNI Admission justification -this patient will be admitted for observation for titration of lactulose and repeat ammonia monitoring. Disposition -I anticipate discharge home after the hospital stay Primary care physician -liver transplant service through the [facility]
[2020-08-16] MEDS ORDERED: Sodium Chloride 0.9% 1,000 ML IV SCH (11:15)
[2020-08-16] MEDS: Insulin Lispro 100 Unit/ML 3 ML KwikPen SUBCUT SCH ×5 (11:27→21:57)
[2020-08-16] MEDS ORDERED: SEROQUEL 50 MG PO SCH (21:00)
[2020-08-16] MEDS: Melatonin 3 MG Tab PO SCH (21:59)
[2020-08-17] MEDS: Insulin Lispro 100 Unit/ML 3 ML KwikPen SUBCUT SCH ×7 (07:50→21:33)
[2020-08-17] MEDS: OMEPRAZOLE 20 MG CAP *PT OWN MED PO SCH (07:59)
[2020-08-17] MEDS: Insulin Glargine,Human Rec. Analog 100 Units/ML 3 ML Pen SUBCUT SCH (08:00)
[2020-08-17] MEDS: TACROLIMUS 0.5 MG PO SCH (08:48)
[2020-08-17] MEDS: Calcium Carbonate/Vitamin D3 1500 MG-400 Units Tab PO SCH ×2 (08:49→21:25)
[2020-08-17] MEDS: predniSONE 5 MG **PTOM PO SCH (08:49)
[2020-08-17] MEDS: Multivitamins with Iron/Calcium/Folic Acid/Minerals Tab PO SCH (08:50)
[2020-08-17] MEDS: Magnesium Oxide 400 MG Tab PO SCH ×2 (08:50→21:26)
[2020-08-17] MEDS: LACTULOSE 10 GM/15 ML PO SCH (08:50)
--- NOTE | 2020-08-17 10:55 | PCM.PN ---
- General Info Date of Service: 08/17/20 Subjective Update: Ms. Catherine has improved over the past 24 hours, currently more alert and interactive. Was up to the chair last night as well as this morning for meals and ate fairly well. Ammonia level has improved significantly since yesterday. Functional Status: Reports: Tolerating Diet, Urinating - Review of Systems General: Reports: Weakness, Fatigue - Patient Data Vitals - Most Recent: Last Vital Signs Temp 97.4 F 08/17/20 10:40 Pulse 85 08/17/20 10:40 Resp 18 08/17/20 10:40 BP 142/95 H 08/17/20 10:40 Pulse Ox 96 08/17/20 10:40 Weight - Most Recent: 117 lb 4.575 oz I&O - Last 24 Hours: Intake & Output 08/16/20 08/17/20 08/17/20 22:59 06:59 14:59 Intake Total 1731 684 Output Total 40 90 Balance 133A -21& Lab Results Last 24 Hours: Laboratory Results - last 24 hr 08/16/20 08/16/20 08/16/20 Range/Units 11:16 16:35 20:55 WBC (4.5-11.0) K/uL RBC (3.30-5.50) M/uL Hgb (12.0-15.0) g/dL Hct (36.0-48.0) % MCV (80-98) fL MCH (27-31) pg MCHC (32-36) % Plt Count (150-400) K/uL Neut % (Auto) (36-66) % Lymph % (Auto) (24-44) % Vance % (Auto) (2-6) % Eos % (Auto) (2-4) % Baso % (Auto) (0-1) % Sodium (140-148) mmol/L Potassium (3.6-5.2) mmol/L Chloride (100-108) mmol/L Carbon Dioxide (21-32) mmol/L Anion Gap (5.0-14.0) mmol/L BUN (7-18) mg/dL Creatinine (0.6-1.0) mg/dL Est Cr Clr Drug Dosing mL/min Estimated GFR (MDRD) (>60) Glucose (74-106) mg/dL POC Glucose 316 H 304 H 275 H (74-106) mg/dL Calcium (8.5-10.1) mg/dL Total Bilirubin (0.2-1.0) mg/dL AST (15-37) U/L ALT (12-78) U/L Alkaline Phosphatase (46-116) U/L Ammonia (11-32) umol/L Total Protein (6.4-8.2) g/dL Albumin (3.4-5.0) g/dL Globulin (2.3-3.5) g/dL Albumin/Globulin Ratio (1.2-2.2) 08/17/20 08/17/20 08/17/20 Range/Units 05:03 05:03 05:03 WBC 5.2 (4.5-11.0) K/uL RBC 3.34 (3.30-5.50) M/uL Hgb 10.9 L (12.0-15.0) g/dL Hct 33.2 L (36.0-48.0) % MCV 99 H (80-98) fL MCH 33 H (27-31) pg MCHC 33 (32-36) % Plt Count 103 L (150-400) K/uL Neut % (Auto) 62.3 (36-66) % Lymph % (Auto) 20.4 L (24-44) % Vance % (Auto) 11.1 H (2-6) % Eos % (Auto) 5.2 H (2-4) % Baso % (Auto) 1.0 (0-1) % Sodium 147 (140-148) mmol/L Potassium 3.7 (3.6-5.2) mmol/L Chloride 110 H (100-108) mmol/L Carbon Dioxide 24 (21-32) mmol/L Anion Gap 16.7 H (5.0-14.0) mmol/L BUN 14 (7-18) mg/dL Creatinine 1.4 H (0.6-1.0) mg/dL Est Cr Clr Drug Dosing 31.08 mL/min Estimated GFR (MDRD) 38 L (>60) Glucose 301 H (74-106) mg/dL POC Glucose (74-106) mg/dL Calcium 8.9 (8.5-10.1) mg/dL Total Bilirubin 1.4 H (0.2-1.0) mg/dL AST 36 (15-37) U/L ALT 53 (12-78) U/L Alkaline Phosphatase 287 H (46-116) U/L Ammonia 51 H (11-32) umol/L Total Protein 5.8 L (6.4-8.2) g/dL Albumin 2.4 L (3.4-5.0) g/dL Globulin 3.4 (2.3-3.5) g/dL Albumin/Globulin Ratio 0.7 L (1.2-2.2) // Range/Units 07:30 WBC (4.5-11.0) K/uL RBC (3.30-5.50) M/uL Hgb (12.0-15.0) g/dL Hct (36.0-48.0) % MCV (80-98) fL MCH (27-31) pg MCHC (32-36) % Plt Count (150-400) K/uL Neut % (Auto) (36-66) % Lymph % (Auto) (24-44) % Vance % (Auto) (2-6) % Eos % (Auto) (2-4) % Baso % (Auto) (0-1) % Sodium (140-148) mmol/L Potassium (3.6-5.2) mmol/L Chloride (100-108) mmol/L Carbon Dioxide (21-32) mmol/L Anion Gap (5.0-14.0) mmol/L BUN (7-18) mg/dL Creatinine (0.6-1.0) mg/dL Est Cr Clr Drug Dosing mL/min Estimated GFR (MDRD) (>60) Glucose (74-106) mg/dL POC Glucose 270 H (74-106) mg/dL Calcium (8.5-10.1) mg/dL Total Bilirubin (0.2-1.0) mg/dL AST (15-37) U/L ALT (12-78) U/L Alkaline Phosphatase (46-116) U/L Ammonia (11-32) umol/L Total Protein (6.4-8.2) g/dL Albumin (3.4-5.0) g/dL Globulin (2.3-3.5) g/dL Albumin/Globulin Ratio (1.2-2.2) Med Orders - Current: Current Medications Acetaminophen (Acetaminophen 325 Mg Tab) 650 mg PO Q4H PRN PRN Reason: Pain (Mild 1-3)/fever Albuterol (Albuterol 0.083% 2.5 Mg/3 Ml Neb Soln) 2.5 mg NEB Q4H PRN PRN Reason: Shortness Of Breath/wheezing Calcium Carbonate (Calcium Carbonate/Vitamin D3 1500 Mg-400 Units Tab) 1 tab PO BID [facility] Last Admin: 08/17/20 08:49 Dose: 1 tab Documented by: Haloperidol Lactate (Haloperidol Lactate 5 Mg/Ml Sdv) 1 mg IVPUSH Q4H PRN PRN Reason: Agitation Last Admin: 08/15/20 23:29 Dose: 1 mg Documented by: Insulin Glargine (Insulin Glargine,Human Rec. Analog 100 Units/Ml 3 Ml Pen) 12 units SUBCUT QAM [facility] Last Admin: 08/17/20 08:00 Dose: 12 unit Documented by: Insulin Human Lispro (Insulin Lispro 100 Unit/Ml 3 Ml Kwikpen) 6 unit SUBCUT TIDMEALS [facility] Last Admin: 08/17/20 07:50 Dose: 6 units Documented by: Insulin Human Lispro (Insulin Lispro 100 Unit/Ml 3 Ml Kwikpen) 0 unit SUBCUT QIDACANDBED [facility]; Protocol Last Admin: 08/17/20 07:50 Dose: 3 units Documented by: Lactulose (Lactulose Soln 10 Gm/15 Ml Ptom) 60 gm PO TID [facility] Last Admin: 08/17/20 08:50 Dose: 60 gm Documented by: Magnesium Oxide (Magnesium Oxide 400 Mg Tab) 800 mg PO BID [facility] Last Admin: 08/17/20 08:50 Dose: 800 mg Documented by: Melatonin (Melatonin 3 Mg Tab) 9 mg PO BEDTIME [facility] Last Admin: 08/16/20 21:59 Dose: 9 mg Documented by: Multivitamins/Minerals (Multivitamins With Iron/Calcium/Folic Acid/Minerals Tab) 1 tab PO DAILY [facility] Last Admin: 08/17/20 08:50 Dose: 1 tab Documented by: Ondansetron HCl (Ondansetron 4 Mg/2 Ml Sdv) 4 mg IV Q6H PRN PRN Reason: Nausea/Vomiting Ondansetron HCl (Ondansetron 4 Mg Tab.Dis) 4 mg PO Q6H PRN PRN Reason: Nausea able to take PO Ursodiol 300 Mg (Ptom) 0 each PO BID [facility] Last Admin: 08/17/20 08:49 Dose: 1 each Documented by: Omeprazole 20 Mg Cap (*Pt Own Med*) 0 each PO ACBREAKFAST [facility] Last Admin: 08/17/20 07:59 Dose: 1 each Documented by: Seroquel 50 Mg (Ptom) 0 each PO BEDTIME [facility] Last Admin: 08/16/20 22:00 Dose: 1 each Documented by: Prednisone (Prednisone 5 Mg Ptom) 5 mg PO DAILY [facility] Last Admin: 08/17/20 08:49 Dose: 5 mg Documented by: Tacrolimus (Tacrolimus 0.5 Mg Ptom) 0.5 mg PO BID [facility] Last Admin: 08/17/20 08:48 Dose: 0.5 mg Documented by: Discontinued Medications Lactated Ringer's (Ringers, Lactated) 1,000 mls @ 150 mls/hr IV ASDIRECTED [facility] Last Admin: 08/15/20 15:02 Dose: 150 mls/hr Documented by: Lactated Ringer's (Ringers, Lactated) 1,000 mls @ 125 mls/hr IV ASDIRECTED [facility] Last Admin: 08/16/20 06:08 Dose: 125 mls/hr Documented by: Sodium Chloride (Normal Saline) 1,000 mls @ 50 mls/hr IV ASDIRECTED [facility] Last Admin: 08/16/20 11:29 Dose: 50 mls/hr Documented by: Insulin Glargine (Insulin Glargine,Human Rec. Analog 100 Units/Ml 3 Ml Pen) 12 units SUBCUT QAM [facility] Insulin Human Lispro (Insulin Lispro 100 Unit/Ml 3 Ml Kwikpen) 6 unit SUBCUT TIDMEALS [facility] Last Admin: 08/15/20 20:41 Dose: Not Given Documented by: Insulin Human Lispro (Insulin Lispro 100 Unit/Ml 3 Ml Kwikpen) 0 unit SUBCUT QIDACANDBED [facility]; Protocol Last Admin: 08/15/20 20:40 Dose: Not Given Documented by: Lactulose (Lactulose Soln 10 Gm/15 Ml 15 Ml Ud Cup) 30 gm PO TID [facility] Lactulose (Lactulose Soln 10 Gm/15 Ml 15 Ml Ud Cup) 40 gm PO ONETIME ONE Stop: 08/15/20 21:01 Lactulose (Lactulose Soln 10 Gm/15 Ml Ptom) 30 gm PO TID [facility] Pantoprazole Sodium (Pantoprazole 40 Mg Tab.Cr) 40 mg PO ACBREAKFAST [facility] Pantoprazole Sodium (Pantoprazole 40 Mg Vial) 40 mg IV ONETIME ONE Stop: 08/15/20 18:01 Last Admin: 08/15/20 18:30 Dose: 40 mg Documented by: Tacrolimus 0.5 Mg (Cap*Pt Own Med*) 0 each PO Q12H [facility] Last Admin: 08/15/20 20:58 Dose: 1 each Documented by: Lactulose Soln 10 Gm (/15 Ml *Pt Own Med*) 0 each PO ONETIME ONE Stop: 08/15/20 21:01 Last Admin: 08/15/20 21:12 Dose: 1 each Documented by: Lactulose Soln 10 Gm (/15 Ml *Pt Own Med*) 0 each PO ONETIME ONE Stop: 08/15/20 17:46 Last Admin: 08/15/20 18:39 Dose: 40 each Documented by: Insulin Lispro 100 Unit/Ml 3 Ml Kwikpen *Pt Own Med* 0 each SUBCUT TIDMEALS [facility] Last Admin: 08/16/20 07:49 Dose: 6 each Documented by: Insulin Lispro 100 Unit/Ml 3 Ml Kwikpen *Pt Own Med* 0 each SUBCUT QIDACANDBED [facility]; Protocol Last Admin: 08/16/20 07:49 Dose: 3 each Documented by: Prednisone (Prednisone 5 Mg Tab) 5 mg PO DAILY [facility] Quetiapine Fumarate (Quetiapine 25 Mg Tab) 50 mg PO DAILY [facility] Tacrolimus (Tacrolimus 0.5 Mg Cap) 0.5 mg PO BID [facility] Last Admin: 08/15/20 19:27 Dose: Not Given Documented by: - Exam Urinary Catheter Total Time: 1Days 4Hours General: Lethargic Lungs: Clear to Auscultation, Normal Respiratory Effort Cardiovascular: Regular Rate, Regular Rhythm, No Murmurs GI/Abdominal Exam: Soft, Non-Tender, No Organomegaly, No Distention Extremities: Non-Tender, No Pedal Edema - Patient Data Lab Results Last 24 hrs: Laboratory Results - last 24 hr 08/16/20 08/16/20 08/16/20 Range/Units 11:16 16:35 20:55 WBC (4.5-11.0) K/uL RBC (3.30-5.50) M/uL Hgb (12.0-15.0) g/dL Hct (36.0-48.0) % MCV (80-98) fL MCH (27-31) pg MCHC (32-36) % Plt Count (150-400) K/uL Neut % (Auto) (36-66) % Lymph % (Auto) (24-44) % Vance % (Auto) (2-6) % Eos % (Auto) (2-4) % Baso % (Auto) (0-1) % Sodium (140-148) mmol/L Potassium (3.6-5.2) mmol/L Chloride (100-108) mmol/L Carbon Dioxide (21-32) mmol/L Anion Gap (5.0-14.0) mmol/L BUN (7-18) mg/dL Creatinine (0.6-1.0) mg/dL Est Cr Clr Drug Dosing mL/min Estimated GFR (MDRD) (>60) Glucose (74-106) mg/dL POC Glucose 316 H 304 H 275 H (74-106) mg/dL Calcium (8.5-10.1) mg/dL Total Bilirubin (0.2-1.0) mg/dL AST (15-37) U/L ALT (12-78) U/L Alkaline Phosphatase (46-116) U/L Ammonia (11-32) umol/L Total Protein (6.4-8.2) g/dL Albumin (3.4-5.0) g/dL Globulin (2.3-3.5) g/dL Albumin/Globulin Ratio (1.2-2.2) 08/17/20 08/17/20 08/17/20 Range/Units 05:03 05:03 05:03 WBC 5.2 (4.5-11.0) K/uL RBC 3.34 (3.30-5.50) M/uL Hgb 10.9 L (12.0-15.0) g/dL Hct 33.2 L (36.0-48.0) % MCV 99 H (80-98) fL MCH 33 H (27-31) pg MCHC 33 (32-36) % Plt Count 103 L (150-400) K/uL Neut % (Auto) 62.3 (36-66) % Lymph % (Auto) 20.4 L (24-44) % Vance % (Auto) 11.1 H (2-6) % Eos % (Auto) 5.2 H (2-4) % Baso % (Auto) 1.0 (0-1) % Sodium 147 (140-148) mmol/L Potassium 3.7 (3.6-5.2) mmol/L Chloride 110 H (100-108) mmol/L Carbon Dioxide 24 (21-32) mmol/L Anion Gap 16.7 H (5.0-14.0) mmol/L BUN 14 (7-18) mg/dL Creatinine 1.4 H (0.6-1.0) mg/dL Est Cr Clr Drug Dosing 31.08 mL/min Estimated GFR (MDRD) 38 L (>60) Glucose 301 H (74-106) mg/dL POC Glucose (74-106) mg/dL Calcium 8.9 (8.5-10.1) mg/dL Total Bilirubin 1.4 H (0.2-1.0) mg/dL AST 36 (15-37) U/L ALT 53 (12-78) U/L Alkaline Phosphatase 287 H (46-116) U/L Ammonia 51 H (11-32) umol/L Total Protein 5.8 L (6.4-8.2) g/dL Albumin 2.4 L (3.4-5.0) g/dL Globulin 3.4 (2.3-3.5) g/dL Albumin/Globulin Ratio 0.7 L (1.2-2.2) 05/25/21 Range/Units 07:30 WBC (4.5-11.0) K/uL RBC (3.30-5.50) M/uL Hgb (12.0-15.0) g/dL Hct (36.0-48.0) % MCV (80-98) fL MCH (27-31) pg MCHC (32-36) % Plt Count (150-400) K/uL Neut % (Auto) (36-66) % Lymph % (Auto) (24-44) % Vance % (Auto) (2-6) % Eos % (Auto) (2-4) % Baso % (Auto) (0-1) % Sodium (140-148) mmol/L Potassium (3.6-5.2) mmol/L Chloride (100-108) mmol/L Carbon Dioxide (21-32) mmol/L Anion Gap (5.0-14.0) mmol/L BUN (7-18) mg/dL Creatinine (0.6-1.0) mg/dL Est Cr Clr Drug Dosing mL/min Estimated GFR (MDRD) (>60) Glucose (74-106) mg/dL POC Glucose 270 H (74-106) mg/dL Calcium (8.5-10.1) mg/dL Total Bilirubin (0.2-1.0) mg/dL AST (15-37) U/L ALT (12-78) U/L Alkaline Phosphatase (46-116) U/L Ammonia (11-32) umol/L Total Protein (6.4-8.2) g/dL Albumin (3.4-5.0) g/dL Globulin (2.3-3.5) g/dL Albumin/Globulin Ratio (1.2-2.2) Result Diagrams: 08/17/20 05:03 08/17/20 05:03 Sepsis Event Note - Evaluation Sepsis Screening Result: No Definite Risk - Focused Exam Vital Signs: Vital Signs Temp Pulse Resp BP Pulse Ox 08/17/20 10:40 97.4 F 85 18 142/95 H 96 08/17/20 07:00 97.1 F 85 18 141/84 H 97 08/17/20 02:24 97.5 F 98 18 134/81 98 08/16/20 23:31 97.4 F 84 16 153/84 H 98 - Problem List Review Problem List Initiated/Reviewed/Updated: Yes - My Orders Last 24 Hours: My Active Orders 08/16/20 09:55 Consult to Dietary [Consult to Team Guide] [CONS] Routine 08/17/20 10:51 Convert IV to Saline Lock [OM.PC] Routine 08/18/20 05:00 COMPREHENSIVE METABOLIC PN,CMP [CHEM] Timed 08/18/20 05:11 AMMONIA VENOUS [CHEM] AM - Plan Plan:: ASSESSMENT AND PLAN Hypoactive delirium-likely secondary to hepatic encephalopathy. More alert and interactive over the last 24 hours -Saline lock IV -Lactulose 45gm 3 times daily -Repeat ammonia level in the morning Insulin-dependent diabetes mellitus-moderate elevation of blood sugar at this time. Sugars are normally fairly well controlled. -Continue home dose of Lantus -6 units of short acting insulin with meals -Sliding scale insulin History of autoimmune hepatitis-liver transplant about 17 years ago. 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 -Continue immunosuppression -Outpatient follow-up with the [facility] Maintenance issues - -DVT prophylaxis-mechanical -GI prophylaxis-PPI -[id number] -Tate catheter-not indicated CODE STATUS -DNR/DNI Admission justification -this patient will be admitted for observation for titration of lactulose and repeat ammonia monitoring. Disposition -I anticipate discharge home after the hospital stay Primary care physician -liver transplant service through the [facility]
[2020-08-17] MEDS ORDERED: Lactulose Soln 10 GM/15 ML 15 ML UD Cup PO SCH (14:00)
[2020-08-17] MEDS ORDERED: QUEtiapine 25 MG Tab PO SCH (21:00)
[2020-08-17] MEDS: Melatonin 3 MG Tab PO SCH (21:23)
[2020-08-17] MEDS: Lactulose Soln 10 GM/15 ML ML 473 ML Bottle PO SCH (21:24)
[2020-08-17] MEDS: Tacrolimus 0.5 MG Cap PO SCH (21:26)
[2020-08-18] MEDS ORDERED: predniSONE 5 MG Tab PO SCH (09:00)
[2020-08-18] MEDS ORDERED: Insulin Glargine,Human Rec. Analog 100 Units/ML 3 ML Pen SUBCUT SCH (09:00)
[2020-08-18] MEDS: OMEPRAZOLE 20 MG CAP *PT OWN MED PO SCH (09:33)
[2020-08-18] MEDS: Magnesium Oxide 400 MG Tab PO SCH (09:34)
[2020-08-18] MEDS: Multivitamins with Iron/Calcium/Folic Acid/Minerals Tab PO SCH (09:34)
[2020-08-18] MEDS: Calcium Carbonate/Vitamin D3 1500 MG-400 Units Tab PO SCH (09:34)
[2020-08-18] MEDS: Tacrolimus 0.5 MG Cap PO SCH (09:34)
[2020-08-18] MEDS: Lactulose Soln 10 GM/15 ML ML 473 ML Bottle PO SCH (09:35)
[2020-08-18] MEDS: Insulin Lispro 100 Unit/ML 3 ML KwikPen SUBCUT SCH ×4 (09:37→11:59)
--- NOTE | 2020-08-18 11:16 | PCM.DCSUM1 ---
Discharge Summary - Hospital Course Brief History: Ms. Catherine is a 60-year-old woman who was admitted through the emergency department with weakness and lethargy secondary to hepatic encephalopathy and underlying hepatic cirrhosis. - Discharge Data Discharge Date: 08/18/20 Discharge Disposition: Home, Self-Care 01 Condition: Fair - Referral to Home Health Primary Care Physician: Elías Ragsdale [employer] - Discharge Diagnosis/Problem(s) (1) Hepatic encephalopathy SNOMED Code(s): 95404710 ICD Code: K72.90 - HEPATIC FAILURE, UNSPECIFIED WITHOUT COMA Status: Acute Current Visit: Yes (2) Hyperammonemia SNOMED Code(s): 3757395 ICD Code: E72.20 - DISORDER OF UREA CYCLE METABOLISM, UNSPECIFIED Status: Acute Current Visit: Yes (3) Confusion SNOMED Code(s): 518504110 ICD Code: R41.0 - DISORIENTATION, UNSPECIFIED Status: Acute Current Visit: Yes (4) Acute hypoactive delirium due to another medical condition SNOMED Code(s): 6382800, [id number], 253629594 ICD Code: F05 - DELIRIUM DUE TO KNOWN PHYSIOLOGICAL CONDITION Status: Acute Current Visit: Yes (5) Diabetes mellitus, insulin dependent (IDDM), controlled SNOMED Code(s): 29352793, 751515210, 819213383 ICD Code: [id number] - Status: Chronic Current Visit: Yes - Patient Summary/Data Consults: Consultations 08/16/20 07:00 PT Evaluation and Treatment [CONS] Routine Please Evaluate and Treat. PT Reason for Consult: Strengthening This query below is only for informational purposes and is not editable. 08/16/20 09:55 Consult to Dietary [Consult to Oven Dumper] [CONS] Routine Comment: Physician Instructions: Quantity: Special Instructions: discuss liver failure diet/lower lactulose. Hospital Course: Ms. Catherine presented to the emergency room with weakness and confusion. She was quite confused and provides only a little bit of the history. Most of the history is gathered from her . He reports that since her ERCP about 1 week ago she has been going downhill with increasing weakness and increasing confusion. She has been having more difficulty getting around and has been sleeping much of the day. Because she sleeps so much her food and fluid intake has gone downhill some but more so over the past 24 hours. Her last bowel movement was about 2 days ago. She has not complained of any nausea and he has not noticed any vomiting. She has not appeared short of breath. He has been checking her temperature periodically and has not measured any fevers. Work-up in the emergency room revealed an ammonia level of 114. Creatinine is up at 1.6 but I am not sure what her baseline is. Bilirubin is 1.9 and alkaline phosphatase is over 300. Her case was discussed with the on-call liver specialist at the [facility]. He recommended hydration and treating the elevated ammonia level. If she does not improve then additional work-up may be needed and potentially transfer. He did note that they feel her liver transplant has been starting to fail and becoming cirrhotic. On admission dose of lactulose was increased and she was given IV fluids for hydration. The following morning she remained very lethargic and her ammonia level was still significantly elevated. Renal function did improve with hydration. Dose of lactulose was increased from 30 g 3 times a day to 60 g 3 times a day. By the following morning she had had several bowel movements and was more alert and interactive, close to baseline. Lactulose was then decreased to 45 g 3 times daily and she remained relatively stable over the next 24 hours and was ambulating in the hallways prior to discharge. She will be discharged home on the increased dose of lactulose 45 g 3 times daily. Follow-up appointment will be scheduled with her primary care provider within 1 week. She already has follow-up appointment scheduled at the [facility]. - Patient Instructions Diet: Low Sodium, Diabetic Diet Activity: As Tolerated Other/Special Instructions: Please schedule follow-up appointment with primary care provider within 1 week. - Discharge Plan *PRESCRIPTION DRUG MONITORING PROGRAM REVIEWED*: Not Applicable *COPY OF PRESCRIPTION DRUG MONITORING REPORT IN PATIENT VIRGILIO: Not Applicable Prescriptions/Med Rec: Lactulose [Chronulac] 45 gm PO TID #2 liter Home Medications: Home Meds Alendronate Sodium [Fosamax] 70 mg PO Q7D 05/24/15 [History] Calcium Carbonate/Vitamin D3 [Calcium 600 + Vit D 200] 1 tab PO BID 05/24/15 [History] Magnesium Oxide 800 mg PO BID 05/24/15 [History] Multivitamin with Minerals [Multiple Vitamin] 1 tab PO DAILY 05/24/15 [History] QUEtiapine [SEROquel] 50 mg PO DAILY 05/24/15 [History] Tacrolimus [Prograf] 0.5 mg PO Q12HR 05/24/15 [History] predniSONE [Prednisone] 5 mg PO DAILY 05/24/15 [History] ursodioL [Actigal] 300 mg PO BID 05/24/15 [History] Insulin Glarg,Human.Rec.Analog [Lantus Solostar] 12 units SQ QAM 08/15/20 [History] Insulin Lispro [Humalog] 1 units SQ TIDMEALS 08/15/20 [History] Lactulose 45 ml PO TID 08/15/20 [History] Omeprazole 20 mg PO QAM 08/15/20 [History] Lactulose [Chronulac] 45 gm PO TID #2 liter 08/18/20 [Rx] Referrals: Elías Ragsdale NP [Primary Care Provider] - - Discharge Summary/Plan Comment DC Time >30 min.: No - Patient Data Vitals - Most Recent: Last Vital Signs Temp 97.0 F 08/18/20 10:46 Pulse 73 08/18/20 10:46 Resp 18 08/18/20 10:46 BP 126/84 08/18/20 10:46 Pulse Ox 99 08/18/20 10:46 Weight - Most Recent: 117 lb 4.575 oz I&O - Last 24 hours: Intake & Output 08/17/20 08/18/20 08/18/20 22:59 06:59 14:59 Intake Total 1250 Output Total 50 700 45 Balance 766 -700 -44* Lab Results - Last 24 hrs: Laboratory Results - last 24 hr 08/17/20 08/17/20 08/17/20 Range/Units 11:32 16:19 21:32 Sodium (140-148) mmol/L Potassium (3.6-5.2) mmol/L Chloride (100-108) mmol/L Carbon Dioxide (21-32) mmol/L Anion Gap (5.0-14.0) mmol/L BUN (7-18) mg/dL Creatinine (0.6-1.0) mg/dL Est Cr Clr Drug Dosing mL/min Estimated GFR (MDRD) (>60) Glucose (74-106) mg/dL POC Glucose 345 H 323 H 280 H (74-106) mg/dL Calcium (8.5-10.1) mg/dL Total Bilirubin (0.2-1.0) mg/dL AST (15-37) U/L ALT (12-78) U/L Alkaline Phosphatase (46-116) U/L Ammonia (11-32) umol/L Total Protein (6.4-8.2) g/dL Albumin (3.4-5.0) g/dL Globulin (2.3-3.5) g/dL Albumin/Globulin Ratio (1.2-2.2) 08/18/20 08/18/20 08/18/20 Range/Units 04:31 04:31 07:27 Sodium 142 (140-148) mmol/L Potassium 3.9 (3.6-5.2) mmol/L Chloride 106 (100-108) mmol/L Carbon Dioxide 27 (21-32) mmol/L Anion Gap 9.1 (5.0-14.0) mmol/L BUN 13 (7-18) mg/dL Creatinine 1.2 H (0.6-1.0) mg/dL Est Cr Clr Drug Dosing 36.26 mL/min Estimated GFR (MDRD) 46 L (>60) Glucose 300 H (74-106) mg/dL POC Glucose 272 H (74-106) mg/dL Calcium 8.6 (8.5-10.1) mg/dL Total Bilirubin 1.1 H (0.2-1.0) mg/dL AST 33 (15-37) U/L ALT 48 (12-78) U/L Alkaline Phosphatase 297 H (46-116) U/L Ammonia 54 H (11-32) umol/L Total Protein 5.5 L (6.4-8.2) g/dL Albumin 2.2 L (3.4-5.0) g/dL Globulin 3.3 (2.3-3.5) g/dL Albumin/Globulin Ratio 0.7 L (1.2-2.2) Med Orders - Current: Current Medications Acetaminophen (Acetaminophen 325 Mg Tab) 650 mg PO Q4H PRN PRN Reason: Pain (Mild 1-3)/fever Albuterol (Albuterol 0.083% 2.5 Mg/3 Ml Neb Soln) 2.5 mg NEB Q4H PRN PRN Reason: Shortness Of Breath/wheezing Calcium Carbonate (Calcium Carbonate/Vitamin D3 1500 Mg-400 Units Tab) 1 tab PO BID [facility] Last Admin: 08/18/20 09:34 Dose: 1 tab Documented by: Haloperidol Lactate (Haloperidol Lactate 5 Mg/Ml Sdv) 1 mg IVPUSH Q4H PRN PRN Reason: Agitation Last Admin: 08/15/20 23:29 Dose: 1 mg Documented by: Insulin Glargine (Insulin Glargine,Human Rec. Analog 100 Units/Ml 3 Ml Pen) 12 units SUBCUT QAM [facility] Last Admin: 08/18/20 09:35 Dose: 12 units Documented by: Insulin Human Lispro (Insulin Lispro 100 Unit/Ml 3 Ml Kwikpen) 6 unit SUBCUT TIDMEALS [facility] Last Admin: 08/18/20 09:37 Dose: 6 units Documented by: Insulin Human Lispro (Insulin Lispro 100 Unit/Ml 3 Ml Kwikpen) 0 unit SUBCUT QIDACANDBED [facility]; Protocol Last Admin: 08/18/20 09:37 Dose: 3 units Documented by: Lactulose (Lactulose Soln 10 Gm/15 Ml Ml 473 Ml Bottle) 45 gm PO TID [facility] Last Admin: 08/18/20 09:35 Dose: 45 gm Documented by: Magnesium Oxide (Magnesium Oxide 400 Mg Tab) 800 mg PO BID [facility] Last Admin: 08/18/20 09:34 Dose: 800 mg Documented by: Melatonin (Melatonin 3 Mg Tab) 9 mg PO BEDTIME [facility] Last Admin: 08/17/20 21:23 Dose: 9 mg Documented by: Multivitamins/Minerals (Multivitamins With Iron/Calcium/Folic Acid/Minerals Tab) 1 tab PO DAILY [facility] Last Admin: 08/18/20 09:34 Dose: 1 tab Documented by: Ondansetron HCl (Ondansetron 4 Mg/2 Ml Sdv) 4 mg IV Q6H PRN PRN Reason: Nausea/Vomiting Ondansetron HCl (Ondansetron 4 Mg Tab.Dis) 4 mg PO Q6H PRN PRN Reason: Nausea able to take PO Ursodiol 300 Mg (Ptom) 0 each PO BID [facility] Last Admin: 08/18/20 09:34 Dose: 1 each Documented by: Omeprazole 20 Mg Cap (*Pt Own Med*) 0 each PO ACBREAKFAST [facility] Last Admin: 08/18/20 09:33 Dose: 1 each Documented by: Prednisone (Prednisone 5 Mg Tab) 5 mg PO DAILY [facility] Last Admin: 08/18/20 09:35 Dose: 5 mg Documented by: Quetiapine Fumarate (Quetiapine 25 Mg Tab) 50 mg PO BEDTIME [facility] Last Admin: 08/17/20 21:25 Dose: 50 mg Documented by: Tacrolimus (Tacrolimus 0.5 Mg Cap) 0.5 mg PO BID [facility] Last Admin: 08/18/20 09:34 Dose: 0.5 mg Documented by: Discontinued Medications Lactated Ringer's (Ringers, Lactated) 1,000 mls @ 150 mls/hr IV ASDIRECTED [facility] Last Admin: 08/15/20 15:02 Dose: 150 mls/hr Documented by: Lactated Ringer's (Ringers, Lactated) 1,000 mls @ 125 mls/hr IV ASDIRECTED [facility] Last Admin: 08/16/20 06:08 Dose: 125 mls/hr Documented by: Sodium Chloride (Normal Saline) 1,000 mls @ 50 mls/hr IV ASDIRECTED [facility] Last Admin: 08/16/20 11:29 Dose: 50 mls/hr Documented by: Insulin Glargine (Insulin Glargine,Human Rec. Analog 100 Units/Ml 3 Ml Pen) 12 units SUBCUT QAM [facility] Insulin Glargine (Insulin Glargine,Human Rec. Analog 100 Units/Ml 3 Ml Pen) 12 units SUBCUT QAM [facility] Last Admin: 08/17/20 08:00 Dose: 12 unit Documented by: Insulin Human Lispro (Insulin Lispro 100 Unit/Ml 3 Ml Kwikpen) 6 unit SUBCUT TIDMEALS [facility] Last Admin: 08/15/20 20:41 Dose: Not Given Documented by: Insulin Human Lispro (Insulin Lispro 100 Unit/Ml 3 Ml Kwikpen) 0 unit SUBCUT QIDACANDBED [facility]; Protocol Last Admin: 08/15/20 20:40 Dose: Not Given Documented by: Insulin Human Lispro (Insulin Lispro 100 Unit/Ml 3 Ml Kwikpen) 6 unit SUBCUT TIDMEALS [facility] Last Admin: 08/17/20 11:56 Dose: 6 units Documented by: Insulin Human Lispro (Insulin Lispro 100 Unit/Ml 3 Ml Kwikpen) 0 unit SUBCUT QIDACANDBED [facility]; Protocol Last Admin: 08/17/20 11:56 Dose: 4 units Documented by: Lactulose (Lactulose Soln 10 Gm/15 Ml 15 Ml Ud Cup) 30 gm PO TID ANA Lactulose (Lactulose Soln 10 Gm/15 Ml 15 Ml Ud Cup) 40 gm PO ONETIME ONE Stop: 08/15/20 21:01 Lactulose (Lactulose Soln 10 Gm/15 Ml Ptom) 30 gm PO TID ANA Lactulose (Lactulose Soln 10 Gm/15 Ml Ptom) 60 gm PO TID [facility] Last Admin: 08/17/20 08:50 Dose: 60 gm Documented by: Lactulose (Lactulose Soln 10 Gm/15 Ml 15 Ml Ud Cup) 45 gm PO TID [facility] Last Admin: 08/17/20 15:14 Dose: 45 gm Documented by: Pantoprazole Sodium (Pantoprazole 40 Mg Tab.Cr) 40 mg PO ACBREAKFAST ANA Pantoprazole Sodium (Pantoprazole 40 Mg Vial) 40 mg IV ONETIME ONE Stop: 08/15/20 18:01 Last Admin: 08/15/20 18:30 Dose: 40 mg Documented by: Tacrolimus 0.5 Mg (Cap*Pt Own Med*) 0 each PO Q12H [facility] Last Admin: 08/15/20 20:58 Dose: 1 each Documented by: Lactulose Soln 10 Gm (/15 Ml *Pt Own Med*) 0 each PO ONETIME ONE Stop: 08/15/20 21:01 Last Admin: 08/15/20 21:12 Dose: 1 each Documented by: Lactulose Soln 10 Gm (/15 Ml *Pt Own Med*) 0 each PO ONETIME ONE Stop: 08/15/20 17:46 Last Admin: 08/15/20 18:39 Dose: 40 each Documented by: Insulin Lispro 100 Unit/Ml 3 Ml Kwikpen *Pt Own Med* 0 each SUBCUT TIDMEALS [facility] Last Admin: 08/16/20 07:49 Dose: 6 each Documented by: Insulin Lispro 100 Unit/Ml 3 Ml Kwikpen *Pt Own Med* 0 each SUBCUT QIDACANDBED [facility]; Protocol Last Admin: 08/16/20 07:49 Dose: 3 each Documented by: Seroquel 50 Mg (Ptom) 0 each PO BEDTIME [facility] Last Admin: 08/16/20 22:00 Dose: 1 each Documented by: Prednisone (Prednisone 5 Mg Tab) 5 mg PO DAILY [facility] Prednisone (Prednisone 5 Mg Ptom) 5 mg PO DAILY [facility] Last Admin: 08/17/20 08:49 Dose: 5 mg Documented by: Quetiapine Fumarate (Quetiapine 25 Mg Tab) 50 mg PO DAILY [facility] Tacrolimus (Tacrolimus 0.5 Mg Cap) 0.5 mg PO BID [facility] Last Admin: 08/15/20 19:27 Dose: Not Given Documented by: Tacrolimus (Tacrolimus 0.5 Mg Ptom) 0.5 mg PO BID [facility] Last Admin: 08/17/20 08:48 Dose: 0.5 mg Documented by: - Exam General: Reports: Alert, Cooperative, Mild Distress Lungs: Reports: Clear to Auscultation, Normal Respiratory Effort Cardiovascular: Reports: Regular Rate, Regular Rhythm, No Murmurs GI/Abdominal Exam: Soft, Non-Tender, No Organomegaly, No Distention Extremities: Non-Tender, No Pedal Edema
== END 2020-08-18 12:20 | disposition home or self-care (01) ==
LOC: JP.ED 13:37 → JP.MS 16:15 → INTOOBSV 16:15
PROVIDERS: ADMIT Internal Medicine; ATTEND Internal Medicine
DX: E72.20 Disorder of urea cycle metabolism, unspecified (principal); K72.90 Hepatic failure, unspecified without coma; F05 Delirium due to known physiological condition; K74.60 Unspecified cirrhosis of liver; K75.4 Autoimmune hepatitis; E11.9 Type 2 diabetes mellitus without complications; Z88.6 Allergy status to analgesic agent; Z79.4 Long term (current) use of insulin; Z79.899 Other long term (current) drug therapy; Z96.89 Presence of other specified functional implants; Z87.891 Personal history of nicotine dependence; Z94.4 Liver transplant status
CPT/HCPCS: 36415; 51701; 51702; 80053; 81001; 82140; 82272; 82947; 84443; 84484; 85025; 85027; 85610; 96374; 96375; 97110-GP; 97162-GP; 97530-GP; 99285; A9270-GY; C9113; G0378; J1630; J1815; J1815-GY; J7030; J7120; J7507; J7512

== ENCOUNTER 2020-10-28 06:20 | Inpatient (IN) | payer MEDICARE ==
--- NOTE | 2020-10-28 06:28 | EDM.PDOC ---
ED HPI GENERAL MEDICAL PROBLEM - General Chief Complaint: Neurological Problem Stated Complaint: MEDICAL VIA STRONG Time Seen by Provider: 10/28/20 06:22 Source of Information: Reports: EMS History Limitations: Reports: Altered Mental Status - History of Present Illness INITIAL COMMENTS - FREE TEXT/NARRATIVE: Cherie is a 60-year-old female who presents via [facility] for evaluation of altered mental status. Patient apparently got up this morning and slid out of bed. noted that she was not acting herself. Patient has a liver transplant patient who underwent liver transplant at the [facility] approximately 15 years ago. reports to EMS that she gets like this when her ammonia level gets too high. The last time that that occurred was in [facility] 2019. Patient is scheduled to see the liver transplant team at the [facility] either later this month or next month. Not much else is known about the patient and her has yet to arrive. EMS stated that there was no injury. The patient has had nausea and emesis enroute to the hospital and was given Zofran 4 mg IV by EMS. They also graciously established an intravenous access and started her on normal saline. - Related Data Allergies Allergy/AdvReac Type Severity Reaction Status Date / Time morphine Allergy Other Verified 05/24/15 08:34 Home Meds: Home Meds Alendronate Sodium [Fosamax] 70 mg PO Q7D 05/24/15 [History] Calcium Carbonate/Vitamin D3 [Calcium 600 + Vit D 200] 1 tab PO BID 05/24/15 [History] Magnesium Oxide 400 mg PO BID 05/24/15 [History] Multivitamin with Minerals [Multiple Vitamin] 1 tab PO DAILY 05/24/15 [History] QUEtiapine [SEROquel] 50 mg PO DAILY 05/24/15 [History] Tacrolimus [Prograf] 0.5 mg PO Q12HR 05/24/15 [History] predniSONE [Prednisone] 5 mg PO DAILY 05/24/15 [History] ursodioL [Actigal] 300 mg PO BID 05/24/15 [History] Insulin Glarg,Human.Rec.Analog [Lantus Solostar] 10 units SQ QAM 08/15/20 [History] Insulin Lispro [Humalog] 1 units SQ TIDMEALS 08/15/20 [History] Lactulose [Chronulac] 45 gm PO TID #2 liter 08/18/20 [Rx] Past Medical History Gastrointestinal History: Reports: Cirrhosis, Other (See Below) Other Gastrointestinal History: Liver transplant 17 yrs ago Neurological History: Reports: Brain Injury Endocrine/Metabolic History: Reports: Diabetes, Type II Immunologic History: Reports: Solid Organ Transplant Other Immunologic History: LIVER - Infectious Disease History Infectious Disease History: Reports: None - Past Surgical History GI Surgical History: Reports: ERCP Other GI Surgeries/Procedures: liver transplant 17 years ago ercp on 08/09/20 with stents 6 total in last year Neurological Surgical History: Reports: None Social & Family History - Caffeine Use Caffeine Use: Reports: Coffee ED ROS GENERAL - Review of Systems Review Of Systems: Unable To Obtain Reason Not Obtained: Patient not answering questions due to altered mental status. ED EXAM, GENERAL - Physical Exam Exam: See Below Exam Limited By: Altered Mental Status General Appearance: Lethargic, Other (Patient is looking around the room but not interacting. She does not answer questions.) Eye Exam: Bilateral Eye: EOMI, PERRL Throat/Mouth: Normal Inspection, Normal Oropharynx, No Airway Compromise Head: Atraumatic, Normocephalic Neck: Normal Inspection, Supple Respiratory/Chest: No Respiratory Distress, Lungs Clear, Normal Breath Sounds Cardiovascular: Normal Peripheral Pulses, Regular Rate, Rhythm, No Murmur Peripheral Pulses: 2+: Radial (L), Radial (R) GI/Abdominal: Soft, Distended (Tympany to percussion throughout the abdomen.), Abnormal Bowel Sounds (Diminished bowel sounds). No: Guarding, Rigid, Rebound Extremities: No Pedal Edema, Normal Capillary Refill Neurological: Inattentive, Confused (Not really answering questions or interacting.), Other (Asterixis) Course - Vital Signs Last Recorded V/S: Last Vital Signs Temp 36.3 C 10/28/20 06:22 Pulse 92 10/28/20 06:22 Resp 12 10/28/20 06:22 BP 155/89 H 10/28/20 06:22 Pulse Ox 95 10/28/20 06:22 - Orders/Labs/Meds Orders: Active Orders 24 hr Category Date Time Status Chest 1V Frontal [CR] Stat Exams 10/28/20 07:35 Ordered Lactulose [Chronulac] Med 10/28/20 09:00 Ordered 10 gm PO BID NG [Nasogastric Orogastric Tube Insertion] [OM.PC] Oth 10/28/20 07:35 Ordered Routine Medication Orders Lactulose (Lactulose Soln 10 Gm/15 Ml 15 Ml Ud Cup) 10 gm PO BID ANA Labs: Laboratory Tests 10/28/20 10/28/20 10/28/20 Range/Units 06:22 06:32 06:32 WBC 5.0 (4.5-11.0) K/uL RBC 3.62 (3.30-5.50) M/uL Hgb 11.9 L (12.0-15.0) g/dL Hct 35.4 L (36.0-48.0) % MCV 98 (80-98) fL MCH 33 H (27-31) pg MCHC 34 (32-36) % Plt Count 121 L (150-400) K/uL Neut % (Auto) 57.8 (36-66) % Lymph % (Auto) 24.2 (24-44) % [place] % (Auto) 10.9 H (2-6) % Eos % (Auto) 5.7 H (2-4) % Baso % (Auto) 1.4 H (0-1) % PT 11.0 (9.5-12.0) sec INR 1.01 (0.80-1.20) APTT 24.0 L (27.0-36.0) sec Sodium (140-148) mmol/L Potassium (3.6-5.2) mmol/L Chloride (100-108) mmol/L Carbon Dioxide (21-32) mmol/L Anion Gap (5.0-14.0) mmol/L BUN (7-18) mg/dL Creatinine (0.6-1.0) mg/dL Est Cr Clr Drug Dosing mL/min Estimated GFR (MDRD) (>60) Glucose (74-106) mg/dL Lactic Acid (0.4-2.0) mmol/L Calcium (8.5-10.1) mg/dL Total Bilirubin (0.2-1.0) mg/dL AST (15-37) U/L ALT (12-78) U/L Alkaline Phosphatase (46-116) U/L Ammonia (11-32) umol/L Total Protein (6.4-8.2) g/dL Albumin (3.4-5.0) g/dL Globulin (2.3-3.5) g/dL Albumin/Globulin Ratio (1.2-2.2) Urine Color Yellow (YELLOW) Urine Appearance Cloudy A (CLEAR) Urine pH 7.5 (5.0-8.0) Ur Specific [place] 1.020 (1.008-1.030) Urine Protein Negative (NEGATIVE) mg/dL Urine Glucose (UA) Negative (NEGATIVE) mg/dL Urine Ketones Negative (NEGATIVE) mg/dL Urine Occult Blood Negative (NEGATIVE) Urine Nitrite Negative (NEGATIVE) Urine Bilirubin Negative (NEGATIVE) Urine Urobilinogen 0.2 (0.2-1.0) EU/dL Ur Leukocyte Esterase Negative (NEGATIVE) Urine RBC 0-5 (0-5) Urine WBC 0-5 (0-5) Ur Epithelial Cells Rare Amorphous Sediment Many Urine Bacteria Few Urine Mucus Not seen Ethyl Alcohol mg/dL 10/28/20 10/28/20 10/28/20 Range/Units 06:32 06:32 06:32 WBC (4.5-11.0) K/uL RBC (3.30-5.50) M/uL Hgb (12.0-15.0) g/dL Hct (36.0-48.0) % MCV (80-98) fL MCH (27-31) pg MCHC (32-36) % Plt Count (150-400) K/uL Neut % (Auto) (36-66) % Lymph % (Auto) (24-44) % [place] % (Auto) (2-6) % Eos % (Auto) (2-4) % Baso % (Auto) (0-1) % PT (9.5-12.0) sec INR (0.80-1.20) APTT (27.0-36.0) sec Sodium 142 (140-148) mmol/L Potassium 3.8 (3.6-5.2) mmol/L Chloride 108 (100-108) mmol/L Carbon Dioxide 22 (21-32) mmol/L Anion Gap 12.0 (5.0-14.0) mmol/L BUN 16 (7-18) mg/dL Creatinine 1.3 H (0.6-1.0) mg/dL Est Cr Clr Drug Dosing 38.54 mL/min Estimated GFR (MDRD) 42 L (>60) Glucose 181 H (74-106) mg/dL Lactic Acid 1.8 (0.4-2.0) mmol/L Calcium 9.2 (8.5-10.1) mg/dL Total Bilirubin 1.2 H (0.2-1.0) mg/dL AST 38 H (15-37) U/L ALT 40 (12-78) U/L Alkaline Phosphatase 273 H (46-116) U/L Ammonia 209 H (11-32) umol/L Total Protein 6.6 (6.4-8.2) g/dL Albumin 2.7 L (3.4-5.0) g/dL Globulin 3.9 H (2.3-3.5) g/dL Albumin/Globulin Ratio 0.7 L (1.2-2.2) Urine Color (YELLOW) Urine Appearance (CLEAR) Urine pH (5.0-8.0) Ur Specific [place] (1.008-1.030) Urine Protein (NEGATIVE) mg/dL Urine Glucose (UA) (NEGATIVE) mg/dL Urine Ketones (NEGATIVE) mg/dL Urine Occult Blood (NEGATIVE) Urine Nitrite (NEGATIVE) Urine Bilirubin (NEGATIVE) Urine Urobilinogen (0.2-1.0) EU/dL Ur Leukocyte Esterase (NEGATIVE) Urine RBC (0-5) Urine WBC (0-5) Ur Epithelial Cells Amorphous Sediment Urine Bacteria Urine Mucus Ethyl Alcohol mg/dL 10/28/20 Range/Units 06:32 WBC (4.5-11.0) K/uL RBC (3.30-5.50) M/uL Hgb (12.0-15.0) g/dL Hct (36.0-48.0) % MCV (80-98) fL MCH (27-31) pg MCHC (32-36) % Plt Count (150-400) K/uL Neut % (Auto) (36-66) % Lymph % (Auto) (24-44) % [place] % (Auto) (2-6) % Eos % (Auto) (2-4) % Baso % (Auto) (0-1) % PT (9.5-12.0) sec INR (0.80-1.20) APTT (27.0-36.0) sec Sodium (140-148) mmol/L Potassium (3.6-5.2) mmol/L Chloride (100-108) mmol/L Carbon Dioxide (21-32) mmol/L Anion Gap (5.0-14.0) mmol/L BUN (7-18) mg/dL Creatinine (0.6-1.0) mg/dL Est Cr Clr Drug Dosing mL/min Estimated GFR (MDRD) (>60) Glucose (74-106) mg/dL Lactic Acid (0.4-2.0) mmol/L Calcium (8.5-10.1) mg/dL Total Bilirubin (0.2-1.0) mg/dL AST (15-37) U/L ALT (12-78) U/L Alkaline Phosphatase (46-116) U/L Ammonia (11-32) umol/L Total Protein (6.4-8.2) g/dL Albumin (3.4-5.0) g/dL Globulin (2.3-3.5) g/dL Albumin/Globulin Ratio (1.2-2.2) Urine Color (YELLOW) Urine Appearance (CLEAR) Urine pH (5.0-8.0) Ur Specific [place] (1.008-1.030) Urine Protein (NEGATIVE) mg/dL Urine Glucose (UA) (NEGATIVE) mg/dL Urine Ketones (NEGATIVE) mg/dL Urine Occult Blood (NEGATIVE) Urine Nitrite (NEGATIVE) Urine Bilirubin (NEGATIVE) Urine Urobilinogen (0.2-1.0) EU/dL Ur Leukocyte Esterase (NEGATIVE) Urine RBC (0-5) Urine WBC (0-5) Ur Epithelial Cells Amorphous Sediment Urine Bacteria Urine Mucus Ethyl Alcohol < 3 mg/dL Meds: Medications Generic Name Dose Route Start Last Admin Trade Name Freq PRN Reason Stop Dose Admin Lactulose 10 gm 10/28/20 09:00 Lactulose Soln 10 Gm/15 Ml 15 Ml Ud Cup PO BID ANA - Re-Assessments/Exams Free Text/Narrative Re-Assessment/Exam: 10/28/20 06:28 patient is a liver transplant patient from [facility]. reports that when she gets like this is usually due to excessive ammonia. Patient does have asterixis and is noninteractive, nonverbal, but does withdraw to stimuli. We will check a CBC, comprehensive metabolic panel, PT and PTT, ammonia, lactic acid, and urinalysis. EMS also reported that there was a glass in the bathroom with some substance in it and questions whether there may be ethanol on board. We will also check this a. N IV was established by EMS and is administering normal saline 0.9%. EMS also provided her with Zofran 4 mg IV push for vomiting. 10/28/20 06:40 I reviewed the patient's CBC with a leukocyte count of 5.0 normal differential. The hemoglobin is 11.9, hematocrit of 35.4, and platelet count of 121,000. 10/28/20 07:05 I reviewed the patient's comprehensive metabolic panel showing a sodium of 142, potassium 3.8, chloride of 108, bicarbonate of 22, BUN of 16 with a creatinine 1.3 and glucose of 181. The PT/INR is 11.0/1.01. The PTT is 24. AST is 38, ALT is 40, total bili is 1.2, ethanol is less than 3 and ammonia is 209. The patient will need admission for hypoammonia anemia. I will discussed the case with Dr. Glasgow. Departure - Departure Time of Disposition: 07:29 Disposition: Admitted As Inpatient 67 Clinical Impression: History of liver transplant, Hyperammonemia, Confusion, Hepatic encephalopathy, Acute hypoactive delirium due to another medical condition Altered mental status Qualifiers: Altered mental status type: disorientation Qualified Code(s): R41.0 - Disorientation, unspecified - Discharge Information Referrals: PCP,None [Primary Care Provider] - Forms: ED Department Discharge Sepsis Event Note (ED) - Focused Exam Vital Signs: Vital Signs Temp Pulse Resp BP Pulse Ox 10/28/20 06:22 36.3 C 92 12 155/89 H 95 - Problem List & Annotations (1) Hyperammonemia SNOMED Code(s): 2525784 Code(s): E72.20 - DISORDER OF UREA CYCLE METABOLISM, UNSPECIFIED Status: Acute Priority: High Current Visit: Yes (2) Confusion SNOMED Code(s): 172454845 Code(s): R41.0 - DISORIENTATION, UNSPECIFIED Status: Acute Priority: High Current Visit: Yes (3) Acute hypoactive delirium due to another medical condition SNOMED Code(s): 9408524, 595326879, 517826698 Code(s): F05 - DELIRIUM DUE TO KNOWN PHYSIOLOGICAL CONDITION Status: Acute Priority: High Current Visit: Yes (4) Diabetes mellitus, insulin dependent (IDDM), controlled SNOMED Code(s): 85852107, 225071503, 210521864 Code(s): ISK4016 - Status: Chronic Priority: Medium Current Visit: No (5) Hepatic encephalopathy SNOMED Code(s): 74322344 Code(s): K72.90 - HEPATIC FAILURE, UNSPECIFIED WITHOUT COMA Status: Chronic Priority: High Current Visit: Yes (6) Altered mental status SNOMED Code(s): 767273952 Code(s): R41.82 - ALTERED MENTAL STATUS, UNSPECIFIED Status: Acute Priority: High Current Visit: Yes Qualifiers: Altered mental status type: disorientation Qualified Code(s): R41.0 - Disorientation, unspecified (7) History of liver transplant SNOMED Code(s): 612105707 Code(s): Z94.4 - LIVER TRANSPLANT STATUS Status: Chronic Priority: High Current Visit: Yes - Problem List Review Problem List Initiated/Reviewed/Updated: Yes - My Orders Last 24 Hours: My Active Orders 10/28/20 07:35 Chest 1V Frontal [CR] Stat NG [Nasogastric Orogastric Tube Insertion] [OM.PC] Routine 10/28/20 09:00 Lactulose [Chronulac] 10 gm PO BID - Assessment/Plan Last 24 Hours: My Active Orders 10/28/20 07:35 Chest 1V Frontal [CR] Stat NG [Nasogastric Orogastric Tube Insertion] [OM.PC] Routine 10/28/20 09:00 Lactulose [Chronulac] 10 gm PO BID
[2020-10-28] MEDS ORDERED: Lactulose Soln 10 GM/15 ML 15 ML UD Cup NGTUBE ONE (08:17)
--- NOTE | 2020-10-28 08:27 | PCM.HP.2 ---
H&P History of Present Illness - General Date of Service: 10/28/20 Admit Problem/Dx: Admission Diagnosis/Problem Admission Diagnosis/Problem Encephalopathy Source of Information: Old Records, Provider, RN Notes Reviewed. No: Patient History Limitations: Reports: Altered Mental Status (Hepatic encephalopathy) - History of Present Illness Initial Comments - Free Text/Narative: Ms. Catherine is a 60-year-old woman who was admitted through the emergency department with lethargy and decreased level of consciousness, secondary to hepatic encephalopathy. 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 She had a previous episode of hepatic encephalopathy with elevated ammonia level earlier this year. Patient is unable to provide meaningful history concerning recent symptoms or events because of her decreased level of consciousness. Evaluation in the emergency department was found to had marked elevation in her ammonia level at 209. There is no evidence of underlying infection or other significant metabolic abnormalities. - Related Data Allergies/Adverse Reactions: Allergies Allergy/AdvReac Type Severity Reaction Status Date / Time morphine Allergy Other Verified 05/24/15 08:34 Home Medications: Home Meds Alendronate Sodium [Fosamax] 70 mg PO Q7D 05/24/15 [History] Calcium Carbonate/Vitamin D3 [Calcium 600 + Vit D 200] 1 tab PO BID 05/24/15 [History] Magnesium Oxide 400 mg PO BID 05/24/15 [History] Multivitamin with Minerals [Multiple Vitamin] 1 tab PO DAILY 05/24/15 [History] QUEtiapine [SEROquel] 50 mg PO DAILY 05/24/15 [History] Tacrolimus [Prograf] 0.5 mg PO Q12HR 05/24/15 [History] predniSONE [Prednisone] 5 mg PO DAILY 05/24/15 [History] ursodioL [Actigal] 300 mg PO BID 05/24/15 [History] Insulin Glarg,Human.Rec.Analog [Lantus Solostar] 10 units SQ QAM 08/15/20 [History] Insulin Lispro [Humalog] 1 units SQ TIDMEALS 08/15/20 [History] Lactulose 30 gm PO TID 10/28/20 [History] Past Medical History Gastrointestinal History: Reports: Cirrhosis, Other (See Below) Other Gastrointestinal History: Liver transplant 17 yrs ago Neurological History: Reports: Brain Injury Endocrine/Metabolic History: Reports: Diabetes, Type II Immunologic History: Reports: Solid Organ Transplant Other Immunologic History: LIVER - Infectious Disease History Infectious Disease History: Reports: None - Past Surgical History GI Surgical History: Reports: ERCP Other GI Surgeries/Procedures: liver transplant 17 years ago ercp on 08/09/20 with stents 6 total in last year Neurological Surgical History: Reports: None Social & Family History - Tobacco Use Tobacco Use Status *Q: Unknown Ever Used Tobacco - Caffeine Use Caffeine Use: Reports: Coffee H&P Review of Systems - Review of Systems: Review Of Systems: See Below General: Reports: ROS unobtainable (Hepatic encephalopathy) Exam - Exam Exam: See Below - Vital Signs Vital Signs: Last Vital Signs Temp 97.4 F 10/28/20 06:22 Pulse 92 10/28/20 06:22 Resp 12 10/28/20 06:22 BP 155/89 H 10/28/20 06:22 Pulse Ox 95 10/28/20 06:22 Weight: 140 lb - Exam General: Lethargic, Other (Asterixis) HEENT: Conjunctiva Clear, Mucosa Moist & [place], Normal Nasal Septum, Posterior Pharynx Clear, Pupils Equal Neck: Supple, Trachea Midline, +2 Carotid Pulse wo Bruit Lungs: Clear to Auscultation, Normal Respiratory Effort Cardiovascular: Regular Rate, Regular Rhythm, Normal S1, Normal S2. No: Systolic Murmur, Diastolic Murmur GI/Abdominal Exam: Soft, Non-Tender, No Organomegaly, No Distention Extremities: Non-Tender, No Pedal Edema Skin: Warm, Dry, Intact Neuro Extensive - Mental Status: Withdraws to Pain. No: Alert - Patient Data Lab Results Last 24 hrs: Laboratory Results - last 24 hr 10/28/20 10/28/20 10/28/20 Range/Units 06:22 06:32 06:32 WBC 5.0 (4.5-11.0) K/uL RBC 3.62 (3.30-5.50) M/uL Hgb 11.9 L (12.0-15.0) g/dL Hct 35.4 L (36.0-48.0) % MCV 98 (80-98) fL MCH 33 H (27-31) pg MCHC 34 (32-36) % Plt Count 121 L (150-400) K/uL Neut % (Auto) 57.8 (36-66) % Lymph % (Auto) 24.2 (24-44) % [place] % (Auto) 10.9 H (2-6) % Eos % (Auto) 5.7 H (2-4) % Baso % (Auto) 1.4 H (0-1) % PT 11.0 (9.5-12.0) sec INR 1.01 (0.80-1.20) APTT 24.0 L (27.0-36.0) sec Sodium (140-148) mmol/L Potassium (3.6-5.2) mmol/L Chloride (100-108) mmol/L Carbon Dioxide (21-32) mmol/L Anion Gap (5.0-14.0) mmol/L BUN (7-18) mg/dL Creatinine (0.6-1.0) mg/dL Est Cr Clr Drug Dosing mL/min Estimated GFR (MDRD) (>60) Glucose (74-106) mg/dL Lactic Acid (0.4-2.0) mmol/L Calcium (8.5-10.1) mg/dL Total Bilirubin (0.2-1.0) mg/dL AST (15-37) U/L ALT (12-78) U/L Alkaline Phosphatase (46-116) U/L Ammonia (11-32) umol/L Total Protein (6.4-8.2) g/dL Albumin (3.4-5.0) g/dL Globulin (2.3-3.5) g/dL Albumin/Globulin Ratio (1.2-2.2) Urine Color Yellow (YELLOW) Urine Appearance Cloudy A (CLEAR) Urine pH 7.5 (5.0-8.0) Ur Specific [place] 1.020 (1.008-1.030) Urine Protein Negative (NEGATIVE) mg/dL Urine Glucose (UA) Negative (NEGATIVE) mg/dL Urine Ketones Negative (NEGATIVE) mg/dL Urine Occult Blood Negative (NEGATIVE) Urine Nitrite Negative (NEGATIVE) Urine Bilirubin Negative (NEGATIVE) Urine Urobilinogen 0.2 (0.2-1.0) EU/dL Ur Leukocyte Esterase Negative (NEGATIVE) Urine RBC 0-5 (0-5) Urine WBC 0-5 (0-5) Ur Epithelial Cells Rare Amorphous Sediment Many Urine Bacteria Few Urine Mucus Not seen Ethyl Alcohol mg/dL 10/28/20 10/28/20 10/28/20 Range/Units 06:32 06:32 06:32 WBC (4.5-11.0) K/uL RBC (3.30-5.50) M/uL Hgb (12.0-15.0) g/dL Hct (36.0-48.0) % MCV (80-98) fL MCH (27-31) pg MCHC (32-36) % Plt Count (150-400) K/uL Neut % (Auto) (36-66) % Lymph % (Auto) (24-44) % [place] % (Auto) (2-6) % Eos % (Auto) (2-4) % Baso % (Auto) (0-1) % PT (9.5-12.0) sec INR (0.80-1.20) APTT (27.0-36.0) sec Sodium 142 (140-148) mmol/L Potassium 3.8 (3.6-5.2) mmol/L Chloride 108 (100-108) mmol/L Carbon Dioxide 22 (21-32) mmol/L Anion Gap 12.0 (5.0-14.0) mmol/L BUN 16 (7-18) mg/dL Creatinine 1.3 H (0.6-1.0) mg/dL Est Cr Clr Drug Dosing 38.54 mL/min Estimated GFR (MDRD) 42 L (>60) Glucose 181 H (74-106) mg/dL Lactic Acid 1.8 (0.4-2.0) mmol/L Calcium 9.2 (8.5-10.1) mg/dL Total Bilirubin 1.2 H (0.2-1.0) mg/dL AST 38 H (15-37) U/L ALT 40 (12-78) U/L Alkaline Phosphatase 273 H (46-116) U/L Ammonia 209 H (11-32) umol/L Total Protein 6.6 (6.4-8.2) g/dL Albumin 2.7 L (3.4-5.0) g/dL Globulin 3.9 H (2.3-3.5) g/dL Albumin/Globulin Ratio 0.7 L (1.2-2.2) Urine Color (YELLOW) Urine Appearance (CLEAR) Urine pH (5.0-8.0) Ur Specific [place] (1.008-1.030) Urine Protein (NEGATIVE) mg/dL Urine Glucose (UA) (NEGATIVE) mg/dL Urine Ketones (NEGATIVE) mg/dL Urine Occult Blood (NEGATIVE) Urine Nitrite (NEGATIVE) Urine Bilirubin (NEGATIVE) Urine Urobilinogen (0.2-1.0) EU/dL Ur Leukocyte Esterase (NEGATIVE) Urine RBC (0-5) Urine WBC (0-5) Ur Epithelial Cells Amorphous Sediment Urine Bacteria Urine Mucus Ethyl Alcohol mg/dL 10/28/20 Range/Units 06:32 WBC (4.5-11.0) K/uL RBC (3.30-5.50) M/uL Hgb (12.0-15.0) g/dL Hct (36.0-48.0) % MCV (80-98) fL MCH (27-31) pg MCHC (32-36) % Plt Count (150-400) K/uL Neut % (Auto) (36-66) % Lymph % (Auto) (24-44) % [place] % (Auto) (2-6) % Eos % (Auto) (2-4) % Baso % (Auto) (0-1) % PT (9.5-12.0) sec INR (0.80-1.20) APTT (27.0-36.0) sec Sodium (140-148) mmol/L Potassium (3.6-5.2) mmol/L Chloride (100-108) mmol/L Carbon Dioxide (21-32) mmol/L Anion Gap (5.0-14.0) mmol/L BUN (7-18) mg/dL Creatinine (0.6-1.0) mg/dL Est Cr Clr Drug Dosing mL/min Estimated GFR (MDRD) (>60) Glucose (74-106) mg/dL Lactic Acid (0.4-2.0) mmol/L Calcium (8.5-10.1) mg/dL Total Bilirubin (0.2-1.0) mg/dL AST (15-37) U/L ALT (12-78) U/L Alkaline Phosphatase (46-116) U/L Ammonia (11-32) umol/L Total Protein (6.4-8.2) g/dL Albumin (3.4-5.0) g/dL Globulin (2.3-3.5) g/dL Albumin/Globulin Ratio (1.2-2.2) Urine Color (YELLOW) Urine Appearance (CLEAR) Urine pH (5.0-8.0) Ur Specific [place] (1.008-1.030) Urine Protein (NEGATIVE) mg/dL Urine Glucose (UA) (NEGATIVE) mg/dL Urine Ketones (NEGATIVE) mg/dL Urine Occult Blood (NEGATIVE) Urine Nitrite (NEGATIVE) Urine Bilirubin (NEGATIVE) Urine Urobilinogen (0.2-1.0) EU/dL Ur Leukocyte Esterase (NEGATIVE) Urine RBC (0-5) Urine WBC (0-5) Ur Epithelial Cells Amorphous Sediment Urine Bacteria Urine Mucus Ethyl Alcohol < 3 mg/dL Result Diagrams: 10/28/20 06:32 10/28/20 06:32 Sepsis Event Note - Evaluation Sepsis Screening Result: No Definite Risk - Focused Exam Vital Signs: Vital Signs Temp Pulse Resp BP Pulse Ox 10/28/20 06:22 97.4 F 92 12 155/89 H 95 *Q Meaningful Use (ADM) - VTE Risk Assess *Q Each Risk Factor Represents 1 Point: Age 41 - 59 years Total Score 1 Point Risk Factors: 1 Each Risk Factor Represents 2 Points: None Total Score 2 Point Risk Factors: 0 Each Risk Factor Represents 3 Points: None Total Score 3 Point Risk Factors: 0 Each Risk Factor Represents 5 Points: None Total Score 5 Point Risk Factors: 0 Venous Thromboembolism Risk Factor Score *Q: 1 Problem List Initiated/Reviewed/Updated: Yes Orders Last 24hrs: Active Orders 24 hr Category Date Time Status Patient Status Manage Transfer [TRANSFER] Routine ADT 10/28/20 08:19 Ordered Chest 1V Frontal [CR] Stat Exams 10/28/20 07:35 Taken Lactulose [Chronulac] Med 10/28/20 08:17 Once 60 gm NGTUBE ONETIME ONE NG [Nasogastric Orogastric Tube Insertion] [OM.PC] Oth 10/28/20 07:35 Ordered Routine Resuscitation Status Routine Resus Stat 10/28/20 08:22 Ordered Medication Orders Lactulose (Lactulose Soln 10 Gm/15 Ml 15 Ml Ud Cup) 60 gm NGTUBE ONETIME ONE Stop: 10/28/20 08:18 Assessment/Plan Comment:: ASSESSMENT AND PLAN HEPATIC ENCEPHALOPATHY-history of increased lethargy over the past few days, minimally responsive this morning. 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 Recent similar episode of hepatic encephalopathy. Ammonia level found to be significantly elevated. No evidence of underlying infection or other significant metabolic abnormality at this time. -IV fluids for hydration -NG tube placed for dosing of lactulose -Lactulose 60 g per NG tube 3 times daily until improving and then we will plan to decrease dose -Follow-up ammonia level in a.m. STATUS POST LIVER TRANSPLANT -Plan to give rejection drugs via NG tube TYPE 2 DIABETES MELLITUS -Continue usual dose of long-acting insulin -Hold scheduled dosing of short acting insulin -4 times daily glucometers -Low-dose sliding scale Humalog MAINTENANCE ISSUES -DVT prophylaxis; Lovenox 40 mg subcu daily -GI prophylaxis; not indicated -Tate catheter; not indicated -Nutrition; consistent carb diet when able to eat safely -Nicotine dependence; not required CODE STATUS-FULL CODE ADMISSION STATUS-patient will be admitted to inpatient status, expect at least a 2 night hospital stay for evaluation and management of problems as outlined above. At the time of this admission I do not reasonably expected evaluation and management of this problem will require more than a 96 hour hospital stay. DISPOSITION-anticipate discharge to home after the hospital stay. - Mortality Measure Prognosis:: Good
[2020-10-28] MEDS ORDERED: Lactulose Soln 10 GM/15 ML 15 ML UD Cup PO SCH (09:00)
[2020-10-28] MEDS ORDERED: Non-Formulary Medication 1 Each (Magnesium Oxide [Magnesium Oxide] 400 MG Tablet) PO SCH (09:10)
[2020-10-28] MEDS ORDERED: 50% Dextrose in Water 50 ML Syringe IV PRN (09:10)
[2020-10-28] MEDS ORDERED: URSODIOL 300 MG PO SCH (09:10)
[2020-10-28] MEDS ORDERED: Sodium Chloride 0.9% 10 ML Syringe FLUSH PRN (09:10)
[2020-10-28] MEDS ORDERED: Ondansetron 4 MG/2 ML SDV IV PRN (09:10)
[2020-10-28] MEDS ORDERED: Hydrocortisone Sodium Succinate 100 MG/2 ML SDV IVPUSH ONE (09:10)
[2020-10-28] MEDS ORDERED: Acetaminophen 325 MG Tab PO PRN (09:10)
[2020-10-28] MEDS ORDERED: Non-Formulary Medication 1 Each (Quetiapine [Seroquel] 50 MG Tablet) PO SCH (09:10)
[2020-10-28] MEDS ORDERED: Glucose Gel 15 GM in 37.5 GM Tube PO PRN (09:10)
[2020-10-28] MEDS: Sodium Chloride 0.9% 1,000 ML IV SCH ×2 (09:53→17:56)
[2020-10-28] MEDS: Enoxaparin 40 MG/0.4 ML Syringe SUBCUT SCH (10:18)
[2020-10-28] MEDS: Insulin Glargine,Human Rec. Analog 100 Units/ML 3 ML Pen SUBCUT SCH (10:27)
[2020-10-28] MEDS: Magnesium Oxide 400 MG Tab PO SCH ×2 (11:03→20:46)
[2020-10-28] MEDS: Calcium Carbonate/Vitamin D3 1500 MG-400 Units Tab PO SCH ×2 (11:03→20:46)
[2020-10-28] MEDS: predniSONE 5 MG Tab PO SCH (11:03)
[2020-10-28] MEDS: Tacrolimus 0.5 MG Cap PO SCH ×2 (12:56→20:46)
[2020-10-28] MEDS: Insulin Lispro 100 Unit/ML 3 ML KwikPen SUBCUT SCH ×3 (13:05→20:43)
[2020-10-28] MEDS: Lactulose Soln 10 GM/15 ML ML 473 ML Bottle PO SCH ×2 (13:05→20:44)
[2020-10-28] MEDS: QUEtiapine 25 MG Tab PO SCH (20:46)
[2020-10-28] MEDS: URSODIOL 300 MG PO SCH (20:46)
[2020-10-29] MEDS: Sodium Chloride 0.9% 1,000 ML IV SCH ×2 (03:01→09:11)
[2020-10-29] MEDS: Insulin Lispro 100 Unit/ML 3 ML KwikPen SUBCUT SCH ×4 (08:11→22:03)
[2020-10-29] MEDS ORDERED: Potassium Chloride 20 MEQ Tab.ER PO ONE (08:15)
[2020-10-29] MEDS: Enoxaparin 40 MG/0.4 ML Syringe SUBCUT SCH (08:22)
[2020-10-29] MEDS: Lactulose Soln 10 GM/15 ML ML 473 ML Bottle PO SCH ×3 (08:22→20:31)
[2020-10-29] MEDS: predniSONE 5 MG Tab PO SCH (08:27)
[2020-10-29] MEDS: URSODIOL 300 MG PO SCH ×2 (08:27→20:32)
[2020-10-29] MEDS: Tacrolimus 0.5 MG Cap PO SCH ×2 (08:27→20:32)
[2020-10-29] MEDS: Calcium Carbonate/Vitamin D3 1500 MG-400 Units Tab PO SCH ×2 (08:37→20:31)
[2020-10-29] MEDS: Insulin Glargine,Human Rec. Analog 100 Units/ML 3 ML Pen SUBCUT SCH (08:57)
[2020-10-29] MEDS: Magnesium Oxide 400 MG Tab PO SCH ×2 (09:10→20:33)
--- NOTE | 2020-10-29 09:22 | CR ---
CHEST: Portable 10/28/2020 at 8:12 AM CLINICAL HISTORY:NG tube placement COMPARISON:None FINDINGS: There is an NG tube in the upper stomach. The side-port is at or just above the GE junction. There is some general prominence to the lower lung markings without focal infiltrate or effusion. Impression: NG tube placement as above
[2020-10-29] MEDS ORDERED: Dextrose 5% in Water 1,000 ML IV SCH (10:45)
--- NOTE | 2020-10-29 10:47 | PCM.PN ---
- General Info Date of Service: 10/29/20 Subjective Update: Ms. Catherine remains lethargic and confused, although improved from yesterday. Ammonia level has improved significantly and she has been having regular bowel movements with use of the lactulose. Because of ongoing confusion she is unable to provide meaningful information concerning symptoms or review of systems. - Patient Data Vitals - Most Recent: Last Vital Signs Temp 98 F 10/29/20 07:53 Pulse 101 H 10/29/20 03:18 Resp 12 10/29/20 07:53 BP 145/84 H 10/29/20 07:53 Pulse Ox 96 10/29/20 07:53 Weight - Most Recent: 124 lb 12.788 oz I&O - Last 24 Hours: Intake & Output 10/28/20 10/29/20 10/29/20 22:59 06:59 14:59 Intake Total 1043 1394 Output Total 1 600 300 Balance 1042 794 -300 Lab Results Last 24 Hours: Laboratory Results - last 24 hr 10/28/20 10/28/20 10/28/20 Range/Units 13:00 16:27 20:43 WBC (4.5-11.0) K/uL RBC (3.30-5.50) M/uL Hgb (12.0-15.0) g/dL Hct (36.0-48.0) % MCV (80-98) fL MCH (27-31) pg MCHC (32-36) % Plt Count (150-400) K/uL Neut % (Auto) (36-66) % Lymph % (Auto) (24-44) % Hood % (Auto) (2-6) % Eos % (Auto) (2-4) % Baso % (Auto) (0-1) % Sodium (140-148) mmol/L Potassium (3.6-5.2) mmol/L Chloride (100-108) mmol/L Carbon Dioxide (21-32) mmol/L Anion Gap (5.0-14.0) mmol/L BUN (7-18) mg/dL Creatinine (0.6-1.0) mg/dL Est Cr Clr Drug Dosing mL/min Estimated GFR (MDRD) (>60) Glucose (74-106) mg/dL POC Glucose 215 H 235 H 218 H (74-106) mg/dL Calcium (8.5-10.1) mg/dL Total Bilirubin (0.2-1.0) mg/dL AST (15-37) U/L ALT (12-78) U/L Alkaline Phosphatase (46-116) U/L Ammonia (11-32) umol/L Total Protein (6.4-8.2) g/dL Albumin (3.4-5.0) g/dL Globulin (2.3-3.5) g/dL Albumin/Globulin Ratio (1.2-2.2) 10/29/20 10/29/20 10/29/20 Range/Units 05:39 05:39 05:39 WBC 10.3 (4.5-11.0) K/uL RBC 3.53 (3.30-5.50) M/uL Hgb 11.6 L (12.0-15.0) g/dL Hct 34.4 L (36.0-48.0) % MCV 98 (80-98) fL MCH 33 H (27-31) pg MCHC 34 (32-36) % Plt Count 123 L (150-400) K/uL Neut % (Auto) 79.5 H (36-66) % Lymph % (Auto) 8.8 L (24-44) % Hood % (Auto) 11.2 H (2-6) % Eos % (Auto) 0.3 L (2-4) % Baso % (Auto) 0.2 (0-1) % Sodium 151 H (140-148) mmol/L Potassium 3.2 L (3.6-5.2) mmol/L Chloride 115 H (100-108) mmol/L Carbon Dioxide 21 (21-32) mmol/L Anion Gap 18.2 H (5.0-14.0) mmol/L BUN 15 (7-18) mg/dL Creatinine 1.3 H (0.6-1.0) mg/dL Est Cr Clr Drug Dosing 38.53 mL/min Estimated GFR (MDRD) 42 L (>60) Glucose 144 H (74-106) mg/dL POC Glucose (74-106) mg/dL Calcium 8.4 L (8.5-10.1) mg/dL Total Bilirubin 1.5 H (0.2-1.0) mg/dL AST 58 H (15-37) U/L ALT 50 (12-78) U/L Alkaline Phosphatase 296 H (46-116) U/L Ammonia 48 H (11-32) umol/L Total Protein 6.3 L (6.4-8.2) g/dL Albumin 2.6 L (3.4-5.0) g/dL Globulin 3.7 H (2.3-3.5) g/dL Albumin/Globulin Ratio 0.7 L (1.2-2.2) 10/29/20 Range/Units 08:11 WBC (4.5-11.0) K/uL RBC (3.30-5.50) M/uL Hgb (12.0-15.0) g/dL Hct (36.0-48.0) % MCV (80-98) fL MCH (27-31) pg MCHC (32-36) % Plt Count (150-400) K/uL Neut % (Auto) (36-66) % Lymph % (Auto) (24-44) % Hood % (Auto) (2-6) % Eos % (Auto) (2-4) % Baso % (Auto) (0-1) % Sodium (140-148) mmol/L Potassium (3.6-5.2) mmol/L Chloride (100-108) mmol/L Carbon Dioxide (21-32) mmol/L Anion Gap (5.0-14.0) mmol/L BUN (7-18) mg/dL Creatinine (0.6-1.0) mg/dL Est Cr Clr Drug Dosing mL/min Estimated GFR (MDRD) (>60) Glucose (74-106) mg/dL POC Glucose 138 H (74-106) mg/dL Calcium (8.5-10.1) mg/dL Total Bilirubin (0.2-1.0) mg/dL AST (15-37) U/L ALT (12-78) U/L Alkaline Phosphatase (46-116) U/L Ammonia (11-32) umol/L Total Protein (6.4-8.2) g/dL Albumin (3.4-5.0) g/dL Globulin (2.3-3.5) g/dL Albumin/Globulin Ratio (1.2-2.2) Med Orders - Current: Current Medications Acetaminophen (Acetaminophen 325 Mg Tab) 650 mg PO Q4H PRN PRN Reason: Pain (Mild 1-3)/fever Calcium Carbonate (Calcium Carbonate/Vitamin D3 1500 Mg-400 Units Tab) 1 tab PO BID [facility] Last Admin: 10/29/20 08:37 Dose: Not Given Documented by: Dextrose (Glucose Gel 15 Gm In 37.5 Gm Tube) 15 gm PO ONETIME PRN PRN Reason: Hypoglycemia Dextrose/Water (50% Dextrose In Water 50 Ml Syringe) 50 ml IV ONETIME PRN PRN Reason: Hypoglycemia Enoxaparin Sodium (Enoxaparin 40 Mg/0.4 Ml Syringe) 40 mg SUBCUT DAILY [facility] Last Admin: 10/29/20 08:22 Dose: 40 mg Documented by: Dextrose/Water (Dextrose 5% In Water) 1,000 mls @ 50 mls/hr IV ASDIRECTED [facility] Insulin Glargine (Insulin Glargine,Human Rec. Analog 100 Units/Ml 3 Ml Pen) 10 units SUBCUT QAM [facility] Last Admin: 10/29/20 08:57 Dose: 10 units Documented by: Insulin Human Lispro (Insulin Lispro 100 Unit/Ml 3 Ml Kwikpen) 0 unit SUBCUT QIDACANDBED [facility]; Protocol Last Admin: 10/29/20 08:11 Dose: Not Given Documented by: Lactulose (Lactulose Soln 10 Gm/15 Ml Ml 473 Ml Bottle) 30 gm PO TID [facility] Last Admin: 10/29/20 08:22 Dose: 30 gm Documented by: Magnesium Oxide (Magnesium Oxide 400 Mg Tab) 400 mg PO BID [facility] Last Admin: 10/29/20 09:10 Dose: Not Given Documented by: Ondansetron HCl (Ondansetron 4 Mg/2 Ml Sdv) 4 mg IV Q4H PRN PRN Reason: Nausea/Vomiting Last Admin: 10/28/20 21:52 Dose: 4 mg Documented by: Ursodiol 300mg Cap ( (Ptom)) 1 each PO BID [facility] Last Admin: 10/29/20 08:27 Dose: 1 each Documented by: Prednisone (Prednisone 5 Mg Tab) 5 mg PO DAILY [facility] Last Admin: 10/29/20 08:27 Dose: 5 mg Documented by: Quetiapine Fumarate (Quetiapine 25 Mg Tab) 50 mg PO BEDTIME [facility] Last Admin: 10/28/20 20:46 Dose: Not Given Documented by: Sodium Chloride (Sodium Chloride 0.9% 10 Ml Syringe) 10 ml FLUSH ASDIRECTED PRN PRN Reason: Keep Vein Open Tacrolimus (Tacrolimus 0.5 Mg Cap) 0.5 mg PO Q12H [facility] Last Admin: 10/29/20 08:27 Dose: 0.5 mg Documented by: Discontinued Medications Hydrocortisone Sodium Succinate (Hydrocortisone Sodium Succinate 100 Mg/2 Ml Sdv) 100 mg IVPUSH ONETIME ONE Stop: 10/28/20 09:11 Last Admin: 10/28/20 10:18 Dose: 100 mg Documented by: Sodium Chloride (Normal Saline) 1,000 mls @ 125 mls/hr IV ASDIRECTED [facility] Last Admin: 10/29/20 09:11 Dose: 125 mls/hr Documented by: Lactulose (Lactulose Soln 10 Gm/15 Ml 15 Ml Ud Cup) 10 gm PO BID [facility] Last Admin: 10/28/20 07:53 Dose: 10 gm Documented by: Lactulose (Lactulose Soln 10 Gm/15 Ml 15 Ml Ud Cup) 60 gm NGTUBE ONETIME ONE Stop: 10/28/20 08:18 Last Admin: 10/28/20 08:45 Dose: 60 gm Documented by: Lactulose (Lactulose Soln 10 Gm/15 Ml Ml 473 Ml Bottle) 60 gm PO TID [facility] Last Admin: 10/28/20 20:44 Dose: 60 gm Documented by: Potassium Chloride (Potassium Chloride 20 Meq Tab.Er) 40 meq PO ONETIME ONE Stop: 10/29/20 08:16 Last Admin: 10/29/20 08:39 Dose: 40 meq Documented by: - Exam Quality Assessment: DVT Prophylaxis General: Cooperative, Mild Distress, Lethargic Lungs: Clear to Auscultation, Normal Respiratory Effort Cardiovascular: Regular Rate, Regular Rhythm, No Murmurs GI/Abdominal Exam: Soft, Non-Tender, No Organomegaly, No Distention Extremities: Non-Tender, No Pedal Edema - Patient Data Lab Results Last 24 hrs: Laboratory Results - last 24 hr 10/28/20 10/28/20 10/28/20 Range/Units 13:00 16:27 20:43 WBC (4.5-11.0) K/uL RBC (3.30-5.50) M/uL Hgb (12.0-15.0) g/dL Hct (36.0-48.0) % MCV (80-98) fL MCH (27-31) pg MCHC (32-36) % Plt Count (150-400) K/uL Neut % (Auto) (36-66) % Lymph % (Auto) (24-44) % Hood % (Auto) (2-6) % Eos % (Auto) (2-4) % Baso % (Auto) (0-1) % Sodium (140-148) mmol/L Potassium (3.6-5.2) mmol/L Chloride (100-108) mmol/L Carbon Dioxide (21-32) mmol/L Anion Gap (5.0-14.0) mmol/L BUN (7-18) mg/dL Creatinine (0.6-1.0) mg/dL Est Cr Clr Drug Dosing mL/min Estimated GFR (MDRD) (>60) Glucose (74-106) mg/dL POC Glucose 215 H 235 H 218 H (74-106) mg/dL Calcium (8.5-10.1) mg/dL Total Bilirubin (0.2-1.0) mg/dL AST (15-37) U/L ALT (12-78) U/L Alkaline Phosphatase (46-116) U/L Ammonia (11-32) umol/L Total Protein (6.4-8.2) g/dL Albumin (3.4-5.0) g/dL Globulin (2.3-3.5) g/dL Albumin/Globulin Ratio (1.2-2.2) 10/29/20 10/29/20 10/29/20 Range/Units 05:39 05:39 05:39 WBC 10.3 (4.5-11.0) K/uL RBC 3.53 (3.30-5.50) M/uL Hgb 11.6 L (12.0-15.0) g/dL Hct 34.4 L (36.0-48.0) % MCV 98 (80-98) fL MCH 33 H (27-31) pg MCHC 34 (32-36) % Plt Count 123 L (150-400) K/uL Neut % (Auto) 79.5 H (36-66) % Lymph % (Auto) 8.8 L (24-44) % Hood % (Auto) 11.2 H (2-6) % Eos % (Auto) 0.3 L (2-4) % Baso % (Auto) 0.2 (0-1) % Sodium 151 H (140-148) mmol/L Potassium 3.2 L (3.6-5.2) mmol/L Chloride 115 H (100-108) mmol/L Carbon Dioxide 21 (21-32) mmol/L Anion Gap 18.2 H (5.0-14.0) mmol/L BUN 15 (7-18) mg/dL Creatinine 1.3 H (0.6-1.0) mg/dL Est Cr Clr Drug Dosing 38.53 mL/min Estimated GFR (MDRD) 42 L (>60) Glucose 144 H (74-106) mg/dL POC Glucose (74-106) mg/dL Calcium 8.4 L (8.5-10.1) mg/dL Total Bilirubin 1.5 H (0.2-1.0) mg/dL AST 58 H (15-37) U/L ALT 50 (12-78) U/L Alkaline Phosphatase 296 H (46-116) U/L Ammonia 48 H (11-32) umol/L Total Protein 6.3 L (6.4-8.2) g/dL Albumin 2.6 L (3.4-5.0) g/dL Globulin 3.7 H (2.3-3.5) g/dL Albumin/Globulin Ratio 0.7 L (1.2-2.2) 10/29/20 Range/Units 08:11 WBC (4.5-11.0) K/uL RBC (3.30-5.50) M/uL Hgb (12.0-15.0) g/dL Hct (36.0-48.0) % MCV (80-98) fL MCH (27-31) pg MCHC (32-36) % Plt Count (150-400) K/uL Neut % (Auto) (36-66) % Lymph % (Auto) (24-44) % Hood % (Auto) (2-6) % Eos % (Auto) (2-4) % Baso % (Auto) (0-1) % Sodium (140-148) mmol/L Potassium (3.6-5.2) mmol/L Chloride (100-108) mmol/L Carbon Dioxide (21-32) mmol/L Anion Gap (5.0-14.0) mmol/L BUN (7-18) mg/dL Creatinine (0.6-1.0) mg/dL Est Cr Clr Drug Dosing mL/min Estimated GFR (MDRD) (>60) Glucose (74-106) mg/dL POC Glucose 138 H (74-106) mg/dL Calcium (8.5-10.1) mg/dL Total Bilirubin (0.2-1.0) mg/dL AST (15-37) U/L ALT (12-78) U/L Alkaline Phosphatase (46-116) U/L Ammonia (11-32) umol/L Total Protein (6.4-8.2) g/dL Albumin (3.4-5.0) g/dL Globulin (2.3-3.5) g/dL Albumin/Globulin Ratio (1.2-2.2) Result Diagrams: 10/29/20 05:39 10/29/20 05:39 Sepsis Event Note - Evaluation Sepsis Screening Result: No Definite Risk - Focused Exam Vital Signs: Vital Signs Temp Pulse Resp BP Pulse Ox 10/29/20 07:53 98 F 12 145/84 H 96 10/29/20 03:18 98.3 F 101 H 20 158/87 H 95 10/28/20 23:53 96.6 F L 98 20 172/87 H 95 - Problem List Review Problem List Initiated/Reviewed/Updated: Yes - My Orders Last 24 Hours: My Active Orders 10/28/20 10:00 Calcium Carbonate/Vitamin D3 [Caltrate 600+D 1500 MG-400 Units] 1 tab PO BID Enoxaparin [Lovenox] 40 mg SUBCUT DAILY Magnesium Oxide 400 mg PO BID predniSONE 5 mg PO DAILY 10/28/20 11:00 Insulin Lispro [HumaLOG] See Protocol SUBCUT QIDACANDBED 10/28/20 21:00 Patient's Own Medication [Ptom] 1 each PO BID QUEtiapine [SEROqueL] 50 mg PO BEDTIME 10/29/20 09:00 Lactulose [Chronulac] 30 gm PO TID 10/29/20 10:45 Dextrose 5% in Water @ 50 MLS/HR(1000ml) Dextrose 5% in Water 1,000 ml IV ASDIRECTED 10/30/20 05:00 CBC WITH AUTO DIFF [HEME] Timed COMPREHENSIVE METABOLIC PN,CMP [CHEM] Timed 10/30/20 05:11 AMMONIA VENOUS [CHEM] AM 10/30/20 07:30 GLUCOSE POC LAB TO COLLECT JPM [POC] QIDACANDBED 10/30/20 11:30 GLUCOSE POC LAB TO COLLECT JPM [POC] QIDACANDBED 10/30/20 16:30 GLUCOSE POC LAB TO COLLECT JPM [POC] QIDACANDBED 10/30/20 21:00 GLUCOSE POC LAB TO COLLECT JPM [POC] QIDACANDBED 10/31/20 07:30 GLUCOSE POC LAB TO COLLECT JPM [POC] QIDACANDBED 10/31/20 11:30 GLUCOSE POC LAB TO COLLECT JPM [POC] QIDACANDBED 10/31/20 16:30 GLUCOSE POC LAB TO COLLECT JPM [POC] QIDACANDBED 10/31/20 21:00 GLUCOSE POC LAB TO COLLECT JPM [POC] QIDACANDBED 11/01/20 07:30 GLUCOSE POC LAB TO COLLECT JPM [POC] QIDACANDBED 11/01/20 11:30 GLUCOSE POC LAB TO COLLECT JPM [POC] QIDACANDBED 11/01/20 16:30 GLUCOSE POC LAB TO COLLECT JPM [POC] QIDACANDBED 11/01/20 21:00 GLUCOSE POC LAB TO COLLECT JPM [POC] QIDACANDBED 11/02/20 07:30 GLUCOSE POC LAB TO COLLECT JPM [POC] QIDACANDBED - Plan Plan:: ASSESSMENT AND PLAN HEPATIC ENCEPHALOPATHY-improved from admission but still lethargic and confused -Decrease IV rate to 50 cc/h and change IV fluid to D5W because of mild hypernatremia -Lactulose 30 g per NG tube 3 times daily -Follow-up ammonia level in a.m. STATUS [employer] -Continue outpatient medications TYPE 2 DIABETES MELLITUS -Continue usual dose of long-acting insulin -Hold scheduled dosing of short acting insulin -4 times daily glucometers -Low-dose sliding scale Humalog MAINTENANCE ISSUES -DVT prophylaxis; Lovenox 40 mg subcu daily -GI prophylaxis; not indicated -Tate catheter; not indicated -Nutrition; consistent carb diet -Nicotine dependence; not required CODE STATUS-FULL CODE ADMISSION STATUS-patient will be admitted to inpatient status, expect at least a 2 night hospital stay for evaluation and management of problems as outlined above. At the time of this admission I do not reasonably expected evaluation and management of this problem will require more than a 96 hour hospital stay. DISPOSITION-anticipate discharge to home after the hospital stay.
[2020-10-29] MEDS: QUEtiapine 25 MG Tab PO SCH (20:33)
[2020-10-30] MEDS: Calcium Carbonate/Vitamin D3 1500 MG-400 Units Tab PO SCH ×2 (08:26→21:16)
[2020-10-30] MEDS: Lactulose Soln 10 GM/15 ML ML 473 ML Bottle PO SCH ×2 (08:27→13:40)
[2020-10-30] MEDS: Magnesium Oxide 400 MG Tab PO SCH ×2 (08:29→21:18)
[2020-10-30] MEDS: predniSONE 5 MG Tab PO SCH (08:29)
[2020-10-30] MEDS: Tacrolimus 0.5 MG Cap PO SCH ×2 (08:30→21:18)
[2020-10-30] MEDS: Insulin Lispro 100 Unit/ML 3 ML KwikPen SUBCUT SCH ×4 (08:34→21:23)
[2020-10-30] MEDS: Insulin Glargine,Human Rec. Analog 100 Units/ML 3 ML Pen SUBCUT SCH (08:35)
[2020-10-30] MEDS: URSODIOL 300 MG PO SCH ×2 (08:39→21:17)
[2020-10-30] MEDS ORDERED: Potassium Chloride 20 MEQ Tab.ER PO ONE ×2 (08:45→17:00)
--- NOTE | 2020-10-30 13:16 | PCM.PN ---
- General Info Date of Service: 10/30/20 Subjective Update: Ms. Catherine has improved over the last 24 hours, she is more alert and interactive although still fairly confused. She is having regular bowel movements. Vital signs have remained stable and she has been afebrile. She is unable to provide meaningful information concerning recent symptoms or review of systems because of confusion. - Patient Data Vitals - Most Recent: Last Vital Signs Temp 98.6 F 10/30/20 12:16 Pulse 96 10/30/20 12:16 Resp 16 10/30/20 12:16 BP 156/87 H 10/30/20 12:16 Pulse Ox 98 10/30/20 12:16 Weight - Most Recent: 124 lb 12.788 oz I&O - Last 24 Hours: Intake & Output 10/29/20 10/30/20 10/30/20 22:59 06:59 14:59 Intake Total 1640 560 Output Total 900 900 Balance 740 -340 Lab Results Last 24 Hours: Laboratory Results - last 24 hr 10/29/20 10/29/20 10/30/20 Range/Units 17:31 21:08 04:30 WBC 7.5 (4.5-11.0) K/uL RBC 3.38 (3.30-5.50) M/uL Hgb 11.1 L (12.0-15.0) g/dL Hct 33.4 L (36.0-48.0) % MCV 99 H (80-98) fL MCH 33 H (27-31) pg MCHC 33 (32-36) % Plt Count 79 L (150-400) K/uL Neut % (Auto) 70.4 H (36-66) % Lymph % (Auto) 15.5 L (24-44) % Gray % (Auto) 12.3 H (2-6) % Eos % (Auto) 1.3 L (2-4) % Baso % (Auto) 0.5 (0-1) % Sodium (140-148) mmol/L Potassium (3.6-5.2) mmol/L Chloride (100-108) mmol/L Carbon Dioxide (21-32) mmol/L Anion Gap (5.0-14.0) mmol/L BUN (7-18) mg/dL Creatinine (0.6-1.0) mg/dL Est Cr Clr Drug Dosing mL/min Estimated GFR (MDRD) (>60) Glucose (74-106) mg/dL POC Glucose 290 H 290 H (74-106) mg/dL Calcium (8.5-10.1) mg/dL Total Bilirubin (0.2-1.0) mg/dL AST (15-37) U/L ALT (12-78) U/L Alkaline Phosphatase (46-116) U/L Ammonia (11-32) umol/L Total Protein (6.4-8.2) g/dL Albumin (3.4-5.0) g/dL Globulin (2.3-3.5) g/dL Albumin/Globulin Ratio (1.2-2.2) 10/30/20 10/30/20 10/30/20 Range/Units 04:30 04:30 07:24 WBC (4.5-11.0) K/uL RBC (3.30-5.50) M/uL Hgb (12.0-15.0) g/dL Hct (36.0-48.0) % MCV (80-98) fL MCH (27-31) pg MCHC (32-36) % Plt Count (150-400) K/uL Neut % (Auto) (36-66) % Lymph % (Auto) (24-44) % Gray % (Auto) (2-6) % Eos % (Auto) (2-4) % Baso % (Auto) (0-1) % Sodium 146 (140-148) mmol/L Potassium 3.5 L (3.6-5.2) mmol/L Chloride 112 H (100-108) mmol/L Carbon Dioxide 23 (21-32) mmol/L Anion Gap 14.5 H (5.0-14.0) mmol/L BUN 18 (7-18) mg/dL Creatinine 1.3 H (0.6-1.0) mg/dL Est Cr Clr Drug Dosing 38.53 mL/min Estimated GFR (MDRD) 42 L (>60) Glucose 181 H (74-106) mg/dL POC Glucose 173 H (74-106) mg/dL Calcium 8.3 L (8.5-10.1) mg/dL Total Bilirubin 2.0 H (0.2-1.0) mg/dL AST 50 H (15-37) U/L ALT 48 (12-78) U/L Alkaline Phosphatase 273 H (46-116) U/L Ammonia 27 (11-32) umol/L Total Protein 5.9 L (6.4-8.2) g/dL Albumin 2.3 L (3.4-5.0) g/dL Globulin 3.6 H (2.3-3.5) g/dL Albumin/Globulin Ratio 0.6 L (1.2-2.2) Med Orders - Current: Current Medications Acetaminophen (Acetaminophen 325 Mg Tab) 650 mg PO Q4H PRN PRN Reason: Pain (Mild 1-3)/fever Calcium Carbonate (Calcium Carbonate/Vitamin D3 1500 Mg-400 Units Tab) 1 tab PO BID [facility] Last Admin: 10/30/20 08:26 Dose: 1 tab Documented by: Dextrose (Glucose Gel 15 Gm In 37.5 Gm Tube) 15 gm PO ONETIME PRN PRN Reason: Hypoglycemia Dextrose/Water (50% Dextrose In Water 50 Ml Syringe) 50 ml IV ONETIME PRN PRN Reason: Hypoglycemia Insulin Glargine (Insulin Glargine,Human Rec. Analog 100 Units/Ml 3 Ml Pen) 10 units SUBCUT QAM [facility] Last Admin: 10/30/20 08:35 Dose: 10 units Documented by: Insulin Human Lispro (Insulin Lispro 100 Unit/Ml 3 Ml Kwikpen) 0 unit SUBCUT QIDACANDBED [facility]; Protocol Last Admin: 10/30/20 08:34 Dose: 1 units Documented by: Lactulose (Lactulose Soln 10 Gm/15 Ml Ml 473 Ml Bottle) 30 gm PO TID [facility] Last Admin: 10/30/20 08:27 Dose: 30 gm Documented by: Magnesium Oxide (Magnesium Oxide 400 Mg Tab) 400 mg PO BID [facility] Last Admin: 10/30/20 08:29 Dose: 400 mg Documented by: Ondansetron HCl (Ondansetron 4 Mg/2 Ml Sdv) 4 mg IV Q4H PRN PRN Reason: Nausea/Vomiting Last Admin: 10/28/20 21:52 Dose: 4 mg Documented by: Ursodiol 300mg Cap ( (Ptom)) 1 each PO BID [facility] Last Admin: 10/30/20 08:39 Dose: 1 each Documented by: Potassium Chloride (Potassium Chloride 20 Meq Tab.Er) 40 meq PO ONETIME ONE Stop: 10/30/20 17:01 Prednisone (Prednisone 5 Mg Tab) 5 mg PO DAILY [facility] Last Admin: 10/30/20 08:29 Dose: 5 mg Documented by: Quetiapine Fumarate (Quetiapine 25 Mg Tab) 50 mg PO BEDTIME [facility] Last Admin: 10/29/20 20:33 Dose: 50 mg Documented by: Sodium Chloride (Sodium Chloride 0.9% 10 Ml Syringe) 10 ml FLUSH ASDIRECTED PRN PRN Reason: Keep Vein Open Tacrolimus (Tacrolimus 0.5 Mg Cap) 0.5 mg PO Q12H [facility] Last Admin: 10/30/20 08:30 Dose: 0.5 mg Documented by: Discontinued Medications Enoxaparin Sodium (Enoxaparin 40 Mg/0.4 Ml Syringe) 40 mg SUBCUT DAILY [facility] Last Admin: 10/29/20 08:22 Dose: 40 mg Documented by: Hydrocortisone Sodium Succinate (Hydrocortisone Sodium Succinate 100 Mg/2 Ml Sdv) 100 mg IVPUSH ONETIME ONE Stop: 10/28/20 09:11 Last Admin: 10/28/20 10:18 Dose: 100 mg Documented by: Sodium Chloride (Normal Saline) 1,000 mls @ 125 mls/hr IV ASDIRECTED [facility] Last Admin: 10/29/20 09:11 Dose: 125 mls/hr Documented by: Dextrose/Water (Dextrose 5% In Water) 1,000 mls @ 50 mls/hr IV ASDIRECTED [facility] Last Admin: 10/30/20 01:05 Dose: 50 mls/hr Documented by: Lactulose (Lactulose Soln 10 Gm/15 Ml 15 Ml Ud Cup) 10 gm PO BID [facility] Last Admin: 10/28/20 07:53 Dose: 10 gm Documented by: Lactulose (Lactulose Soln 10 Gm/15 Ml 15 Ml Ud Cup) 60 gm NGTUBE ONETIME ONE Stop: 10/28/20 08:18 Last Admin: 10/28/20 08:45 Dose: 60 gm Documented by: Lactulose (Lactulose Soln 10 Gm/15 Ml Ml 473 Ml Bottle) 60 gm PO TID [facility] Last Admin: 10/28/20 20:44 Dose: 60 gm Documented by: Potassium Chloride (Potassium Chloride 20 Meq Tab.Er) 40 meq PO ONETIME ONE Stop: 10/29/20 08:16 Last Admin: 10/29/20 08:39 Dose: 40 meq Documented by: Potassium Chloride (Potassium Chloride 20 Meq Tab.Er) 40 meq PO ONETIME ONE Stop: 10/30/20 08:46 Last Admin: 10/30/20 08:41 Dose: 40 meq Documented by: - Exam Quality Assessment: DVT Prophylaxis General: Alert, Cooperative, Mild Distress. No: Oriented Lungs: Clear to Auscultation, Normal Respiratory Effort Cardiovascular: Regular Rate, Regular Rhythm, No Murmurs GI/Abdominal Exam: Soft, Non-Tender, No Organomegaly, No Distention Extremities: Non-Tender, No Pedal Edema - Patient Data Lab Results Last 24 hrs: Laboratory Results - last 24 hr 10/29/20 10/29/20 10/30/20 Range/Units 17:31 21:08 04:30 WBC 7.5 (4.5-11.0) K/uL RBC 3.38 (3.30-5.50) M/uL Hgb 11.1 L (12.0-15.0) g/dL Hct 33.4 L (36.0-48.0) % MCV 99 H (80-98) fL MCH 33 H (27-31) pg MCHC 33 (32-36) % Plt Count 79 L (150-400) K/uL Neut % (Auto) 70.4 H (36-66) % Lymph % (Auto) 15.5 L (24-44) % Gray % (Auto) 12.3 H (2-6) % Eos % (Auto) 1.3 L (2-4) % Baso % (Auto) 0.5 (0-1) % Sodium (140-148) mmol/L Potassium (3.6-5.2) mmol/L Chloride (100-108) mmol/L Carbon Dioxide (21-32) mmol/L Anion Gap (5.0-14.0) mmol/L BUN (7-18) mg/dL Creatinine (0.6-1.0) mg/dL Est Cr Clr Drug Dosing mL/min Estimated GFR (MDRD) (>60) Glucose (74-106) mg/dL POC Glucose 290 H 290 H (74-106) mg/dL Calcium (8.5-10.1) mg/dL Total Bilirubin (0.2-1.0) mg/dL AST (15-37) U/L ALT (12-78) U/L Alkaline Phosphatase (46-116) U/L Ammonia (11-32) umol/L Total Protein (6.4-8.2) g/dL Albumin (3.4-5.0) g/dL Globulin (2.3-3.5) g/dL Albumin/Globulin Ratio (1.2-2.2) 10/30/20 10/30/20 10/30/20 Range/Units 04:30 04:30 07:24 WBC (4.5-11.0) K/uL RBC (3.30-5.50) M/uL Hgb (12.0-15.0) g/dL Hct (36.0-48.0) % MCV (80-98) fL MCH (27-31) pg MCHC (32-36) % Plt Count (150-400) K/uL Neut % (Auto) (36-66) % Lymph % (Auto) (24-44) % Gray % (Auto) (2-6) % Eos % (Auto) (2-4) % Baso % (Auto) (0-1) % Sodium 146 (140-148) mmol/L Potassium 3.5 L (3.6-5.2) mmol/L Chloride 112 H (100-108) mmol/L Carbon Dioxide 23 (21-32) mmol/L Anion Gap 14.5 H (5.0-14.0) mmol/L BUN 18 (7-18) mg/dL Creatinine 1.3 H (0.6-1.0) mg/dL Est Cr Clr Drug Dosing 38.53 mL/min Estimated GFR (MDRD) 42 L (>60) Glucose 181 H (74-106) mg/dL POC Glucose 173 H (74-106) mg/dL Calcium 8.3 L (8.5-10.1) mg/dL Total Bilirubin 2.0 H (0.2-1.0) mg/dL AST 50 H (15-37) U/L ALT 48 (12-78) U/L Alkaline Phosphatase 273 H (46-116) U/L Ammonia 27 (11-32) umol/L Total Protein 5.9 L (6.4-8.2) g/dL Albumin 2.3 L (3.4-5.0) g/dL Globulin 3.6 H (2.3-3.5) g/dL Albumin/Globulin Ratio 0.6 L (1.2-2.2) Result Diagrams: 10/30/20 04:30 10/30/20 04:30 Sepsis Event Note - Evaluation Sepsis Screening Result: No Definite Risk - Focused Exam Vital Signs: Vital Signs Temp Pulse Resp BP Pulse Ox 10/30/20 12:16 98.6 F 96 16 156/87 H 98 10/30/20 09:15 97.3 F 88 16 135/72 99 10/30/20 07:51 16 10/30/20 05:00 97.6 F 89 16 138/76 95 - Problem List Review Problem List Initiated/Reviewed/Updated: Yes - My Orders Last 24 Hours: My Active Orders 10/30/20 08:31 Antiembolic Devices [RC] .Routine Sequential Compression Device [OM.PC] Routine 10/30/20 13:12 Convert IV to Saline Lock [OM.PC] Routine 10/30/20 17:00 Potassium Chloride [Klor-Con M20] 40 meq PO ONETIME ONE 10/31/20 05:00 CBC WITH AUTO DIFF [HEME] Timed COMPREHENSIVE METABOLIC PN,CMP [CHEM] Timed 10/31/20 05:11 AMMONIA VENOUS [CHEM] AM 10/31/20 07:30 GLUCOSE POC LAB TO COLLECT JPM [POC] QIDACANDBED 10/31/20 11:30 GLUCOSE POC LAB TO COLLECT JPM [POC] QIDACANDBED 10/31/20 16:30 GLUCOSE POC LAB TO COLLECT JPM [POC] QIDACANDBED 10/31/20 21:00 GLUCOSE POC LAB TO COLLECT JPM [POC] QIDACANDBED 11/01/20 07:30 GLUCOSE POC LAB TO COLLECT JPM [POC] QIDACANDBED 11/01/20 11:30 GLUCOSE POC LAB TO COLLECT JPM [POC] QIDACANDBED 11/01/20 16:30 GLUCOSE POC LAB TO COLLECT JPM [POC] QIDACANDBED 11/01/20 21:00 GLUCOSE POC LAB TO COLLECT JPM [POC] QIDACANDBED 11/02/20 07:30 GLUCOSE POC LAB TO COLLECT JPM [POC] QIDACANDBED 11/02/20 11:30 GLUCOSE POC LAB TO COLLECT JPM [POC] QIDACANDBED 11/02/20 16:30 GLUCOSE POC LAB TO COLLECT JPM [POC] QIDACANDBED 11/02/20 21:00 GLUCOSE POC LAB TO COLLECT JPM [POC] QIDACANDBED 11/03/20 07:30 GLUCOSE POC LAB TO COLLECT JPM [POC] QIDACANDBED 11/03/20 11:30 GLUCOSE POC LAB TO COLLECT JPM [POC] QIDACANDBED 11/03/20 16:30 GLUCOSE POC LAB TO COLLECT JPM [POC] QIDACANDBED 11/03/20 21:00 GLUCOSE POC LAB TO COLLECT JPM [POC] QIDACANDBED - Plan Plan:: ASSESSMENT AND PLAN HEPATIC ENCEPHALOPATHY-improved from admission, much more alert, but still confused. Ammonia level has normalized and mild hypernatremia has resolved -Saline lock IV -Lactulose 30 g per NG tube 3 times daily -Follow-up ammonia level in a.m. STATUS POST LIVER TRANSPLANT -Continue outpatient medications TYPE 2 DIABETES MELLITUS -Continue usual dose of long-acting insulin -Hold scheduled dosing of short acting insulin -4 times daily glucometers -Low-dose sliding scale Humalog MAINTENANCE ISSUES -DVT prophylaxis; Lovenox 40 mg subcu daily -GI prophylaxis; not indicated -Tate catheter; not indicated -Nutrition; consistent carb diet -Nicotine dependence; not required CODE STATUS-FULL CODE ADMISSION STATUS-patient will be admitted to inpatient status, expect at least a 2 night hospital stay for evaluation and management of problems as outlined above. At the time of this admission I do not reasonably expected evaluation and management of this problem will require more than a 96 hour hospital stay. DISPOSITION-anticipate discharge to home after the hospital stay.
[2020-10-30] MEDS: QUEtiapine 25 MG Tab PO SCH (21:17)
[2020-10-30] MEDS: Lactulose Soln 10 GM/15 ML 15 ML UD Cup PO SCH (21:20)
[2020-10-31] MEDS: Tacrolimus 0.5 MG Cap PO SCH (08:13)
[2020-10-31] MEDS: Magnesium Oxide 400 MG Tab PO SCH (08:14)
[2020-10-31] MEDS: predniSONE 5 MG Tab PO SCH (08:14)
[2020-10-31] MEDS: Insulin Glargine,Human Rec. Analog 100 Units/ML 3 ML Pen SUBCUT SCH (08:14)
[2020-10-31] MEDS: URSODIOL 300 MG PO SCH (08:14)
[2020-10-31] MEDS: Calcium Carbonate/Vitamin D3 1500 MG-400 Units Tab PO SCH (08:14)
[2020-10-31] MEDS: Insulin Lispro 100 Unit/ML 3 ML KwikPen SUBCUT SCH ×2 (08:15→13:06)
[2020-10-31] MEDS: Lactulose Soln 10 GM/15 ML 15 ML UD Cup PO SCH (08:26)
--- NOTE | 2020-10-31 11:00 | PCM.DCSUM1 ---
Discharge Summary - Hospital Course Brief History: Ms. Catherine is a 60-year-old woman who was admitted through the emergency department with lethargy and confusion secondary to hepatic encephalopathy. - Discharge Data Discharge Date: 10/31/20 Discharge Disposition: Home, Self-Care 01 Condition: Fair - Referral to Home Health Primary Care Physician: PCP None - Discharge Diagnosis/Problem(s) (1) Hyperammonemia SNOMED Code(s): 6346449 ICD Code: E72.20 - DISORDER OF UREA CYCLE METABOLISM, UNSPECIFIED Status: Acute Priority: High Current Visit: Yes (2) Confusion SNOMED Code(s): 186350416 ICD Code: R41.0 - DISORIENTATION, UNSPECIFIED Status: Acute Priority: High Current Visit: Yes (3) Diabetes mellitus, insulin dependent (IDDM), controlled SNOMED Code(s): 31850304, 577213676, 375298357 ICD Code: [id number] - Status: Chronic Priority: Medium Current Visit: No (4) Hepatic encephalopathy SNOMED Code(s): 34974393 ICD Code: K72.90 - HEPATIC FAILURE, UNSPECIFIED WITHOUT COMA Status: Chronic Priority: High Current Visit: Yes (5) History of liver transplant SNOMED Code(s): 861491288 ICD Code: Z94.4 - LIVER TRANSPLANT STATUS Status: Chronic Priority: High Current Visit: Yes - Patient Summary/Data Hospital Course: Ms. Catherine is a 60-year-old woman who was admitted through the emergency department with lethargy and decreased level of consciousness, secondary to hepatic encephalopathy. 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 She had a previous episode of hepatic encephalopathy with elevated ammonia level earlier this year. Patient is unable to provide meaningful history concerning recent symptoms or events because of her decreased level of consciousness. Evaluation in the emergency department was found to had marked elevation in her ammonia level at 209. There was no evidence of underlying infection or other significant metabolic abnormalities. She was placed on lactulose 60 mg 3 times daily and over the course of her hospital stay encephalopathy gradually resolved and by the time of discharge she was back to baseline. She had been prescribed 60 mg 3 times daily of the lactulose but had not been taking it in the full dose at home. Glucose levels were monitored throughout her hospital stay and she was treated with supplemental insulin as needed. Bilirubin level did increase during hospitalization up to 4.4 by the time of discharge. will contact liver transplant team concerning the elevated bilirubin. ERCP is scheduled for her later this month but she will likely need to be seen sooner because of the increased bilirubin. Follow-up appointment will be scheduled with her primary care provider within 1 week and a liver profile will be obtained at that time. A ctivity will be as tolerated and she will resume her usual diet. - Patient Instructions Diet: Usual Diet as Tolerated Activity: As Tolerated Other/Special Instructions: Please schedule follow-up appointment with primary care provider within 1 week. Liver profile should be obtained at the time of follow-up appointment. will contact liver transplant team concerning the increase in bilirubin to 4.4. She already has ERCP scheduled for later this month but it may need to be moved up. - Discharge Plan *PRESCRIPTION DRUG MONITORING PROGRAM REVIEWED*: Not Applicable *COPY OF PRESCRIPTION DRUG MONITORING REPORT IN PATIENT VIRGILIO: Not Applicable Home Medications: Home Meds Alendronate Sodium [Fosamax] 70 mg PO Q7D 05/24/15 [History] Calcium Carbonate/Vitamin D3 [Calcium 600 + Vit D 200] 1 tab PO BID 05/24/15 [Hi story] Magnesium Oxide 400 mg PO BID 05/24/15 [History] Multivitamin with Minerals [Multiple Vitamin] 1 tab PO DAILY 05/24/15 [History] QUEtiapine [SEROquel] 50 mg PO DAILY 05/24/15 [History] Tacrolimus [Prograf] 0.5 mg PO Q12HR 05/24/15 [History] predniSONE [Prednisone] 5 mg PO DAILY 05/24/15 [History] ursodioL [Actigal] 300 mg PO BID 05/24/15 [History] Insulin Glarg,Human.Rec.Analog [Lantus Solostar] 10 units SQ QAM 08/15/20 [History] Insulin Lispro [Humalog] 1 units SQ TIDMEALS 08/15/20 [History] Lactulose 60 gm PO TID #0 10/31/20 [Rx] Referrals: Elías Ragsdale, [facility] [Nurse Practitioner] - - Discharge Summary/Plan Comment DC Time >30 min.: No - Patient Data Vitals - Most Recent: Last Vital Signs Temp 96.8 F L 10/31/20 07:53 Pulse 93 10/31/20 07:53 Resp 16 10/31/20 07:53 BP 112/62 10/31/20 07:53 Pulse Ox 97 10/31/20 07:53 Weight - Most Recent: 124 lb 12.506 oz I&O - Last 24 hours: Intake & Output 10/30/20 10/31/20 10/31/20 22:59 06:59 14:59 Intake Total 1822 320 Output Total 1050 300 Balance 772 -300 320 Lab Results - Last 24 hrs: Laboratory Results - last 24 hr 10/30/20 10/30/20 10/30/20 Range/Units 13:28 16:34 21:02 WBC (4.5-11.0) K/uL RBC (3.30-5.50) M/uL Hgb (12.0-15.0) g/dL Hct (36.0-48.0) % MCV (80-98) fL MCH (27-31) pg MCHC (32-36) % Plt Count (150-400) K/uL Neut % (Auto) (36-66) % Lymph % (Auto) (24-44) % Morton % (Auto) (2-6) % Eos % (Auto) (2-4) % Baso % (Auto) (0-1) % Sodium (140-148) mmol/L Potassium (3.6-5.2) mmol/L Chloride (100-108) mmol/L Carbon Dioxide (21-32) mmol/L Anion Gap (5.0-14.0) mmol/L BUN (7-18) mg/dL Creatinine (0.6-1.0) mg/dL Est Cr Clr Drug Dosing mL/min Estimated GFR (MDRD) (>60) Glucose (74-106) mg/dL POC Glucose 312 H 272 H 284 H (74-106) mg/dL Calcium (8.5-10.1) mg/dL Total Bilirubin (0.2-1.0) mg/dL AST (15-37) U/L ALT (12-78) U/L Alkaline Phosphatase (46-116) U/L Ammonia (11-32) umol/L Total Protein (6.4-8.2) g/dL Albumin (3.4-5.0) g/dL Globulin (2.3-3.5) g/dL Albumin/Globulin Ratio (1.2-2.2) 10/31/20 10/31/20 10/31/20 Range/Units 04:05 04:05 04:05 WBC 8.0 (4.5-11.0) K/uL RBC 3.47 (3.30-5.50) M/uL Hgb 11.1 L (12.0-15.0) g/dL Hct 33.6 L (36.0-48.0) % MCV 97 (80-98) fL MCH 32 H (27-31) pg MCHC 33 (32-36) % Plt Count 59 L (150-400) K/uL Neut % (Auto) 75.3 H (36-66) % Lymph % (Auto) 8.7 L (24-44) % Morton % (Auto) 14.6 H (2-6) % Eos % (Auto) 1.0 L (2-4) % Baso % (Auto) 0.4 (0-1) % Sodium 137 L (140-148) mmol/L Potassium 4.3 (3.6-5.2) mmol/L Chloride 104 (100-108) mmol/L Carbon Dioxide 21 (21-32) mmol/L Anion Gap 16.3 H (5.0-14.0) mmol/L BUN 17 (7-18) mg/dL Creatinine 1.4 H (0.6-1.0) mg/dL Est Cr Clr Drug Dosing 35.78 mL/min Estimated GFR (MDRD) 38 L (>60) Glucose 292 H (74-106) mg/dL POC Glucose (74-106) mg/dL Calcium 8.7 (8.5-10.1) mg/dL Total Bilirubin 4.4 H D (0.2-1.0) mg/dL AST 54 H (15-37) U/L ALT 49 (12-78) U/L Alkaline Phosphatase 301 H (46-116) U/L Ammonia < 17 (11-32) umol/L Total Protein 6.1 L (6.4-8.2) g/dL Albumin 2.4 L (3.4-5.0) g/dL Globulin 3.7 H (2.3-3.5) g/dL Albumin/Globulin Ratio 0.7 L (1.2-2.2) 10/31/20 Range/Units 07:23 WBC (4.5-11.0) K/uL RBC (3.30-5.50) M/uL Hgb (12.0-15.0) g/dL Hct (36.0-48.0) % MCV (80-98) fL MCH (27-31) pg MCHC (32-36) % Plt Count (150-400) K/uL Neut % (Auto) (36-66) % Lymph % (Auto) (24-44) % Morton % (Auto) (2-6) % Eos % (Auto) (2-4) % Baso % (Auto) (0-1) % Sodium (140-148) mmol/L Potassium (3.6-5.2) mmol/L Chloride (100-108) mmol/L Carbon Dioxide (21-32) mmol/L Anion Gap (5.0-14.0) mmol/L BUN (7-18) mg/dL Creatinine (0.6-1.0) mg/dL Est Cr Clr Drug Dosing mL/min Estimated GFR (MDRD) (>60) Glucose (74-106) mg/dL POC Glucose 275 H (74-106) mg/dL Calcium (8.5-10.1) mg/dL Total Bilirubin (0.2-1.0) mg/dL AST (15-37) U/L ALT (12-78) U/L Alkaline Phosphatase (46-116) U/L Ammonia (11-32) umol/L Total Protein (6.4-8.2) g/dL Albumin (3.4-5.0) g/dL Globulin (2.3-3.5) g/dL Albumin/Globulin Ratio (1.2-2.2) Med Orders - Current: Current Medications Acetaminophen (Acetaminophen 325 Mg Tab) 650 mg PO Q4H PRN PRN Reason: Pain (Mild 1-3)/fever Calcium Carbonate (Calcium Carbonate/Vitamin D3 1500 Mg-400 Units Tab) 1 tab PO BID [facility] Last Admin: 10/31/20 08:14 Dose: 1 tab Documented by: Dextrose (Glucose Gel 15 Gm In 37.5 Gm Tube) 15 gm PO ONETIME PRN PRN Reason: Hypoglycemia Dextrose/Water (50% Dextrose In Water 50 Ml Syringe) 50 ml IV ONETIME PRN PRN Reason: Hypoglycemia Insulin Glargine (Insulin Glargine,Human Rec. Analog 100 Units/Ml 3 Ml Pen) 10 units SUBCUT QAM [facility] Last Admin: 10/31/20 08:14 Dose: 10 units Documented by: Insulin Human Lispro (Insulin Lispro 100 Unit/Ml 3 Ml Kwikpen) 0 unit SUBCUT QIDACANDBED [facility]; Protocol Last Admin: 10/31/20 08:15 Dose: 3 units Documented by: Lactulose (Lactulose Soln 10 Gm/15 Ml 15 Ml Ud Cup) 60 gm PO TID [facility] Last Admin: 10/31/20 08:26 Dose: 60 gm Documented by: Magnesium Oxide (Magnesium Oxide 400 Mg Tab) 400 mg PO BID [facility] Last Admin: 10/31/20 08:14 Dose: 400 mg Documented by: Ondansetron HCl (Ondansetron 4 Mg/2 Ml Sdv) 4 mg IV Q4H PRN PRN Reason: Nausea/Vomiting Last Admin: 10/28/20 21:52 Dose: 4 mg Documented by: Ursodiol 300mg Cap ( (Ptom)) 1 each PO BID [facility] Last Admin: 10/31/20 08:14 Dose: 1 each Documented by: Prednisone (Prednisone 5 Mg Tab) 5 mg PO DAILY [facility] Last Admin: 10/31/20 08:14 Dose: 5 mg Documented by: Quetiapine Fumarate (Quetiapine 25 Mg Tab) 50 mg PO BEDTIME [facility] Last Admin: 10/30/20 21:17 Dose: 50 mg Documented by: Sodium Chloride (Sodium Chloride 0.9% 10 Ml Syringe) 10 ml FLUSH ASDIRECTED PRN PRN Reason: Keep Vein Open Tacrolimus (Tacrolimus 0.5 Mg Cap) 0.5 mg PO Q12H [facility] Last Admin: 10/31/20 08:13 Dose: 0.5 mg Documented by: Discontinued Medications Enoxaparin Sodium (Enoxaparin 40 Mg/0.4 Ml Syringe) 40 mg SUBCUT DAILY [facility] Last Admin: 10/29/20 08:22 Dose: 40 mg Documented by: Hydrocortisone Sodium Succinate (Hydrocortisone Sodium Succinate 100 Mg/2 Ml Sdv) 100 mg IVPUSH ONETIME ONE Stop: 10/28/20 09:11 Last Admin: 10/28/20 10:18 Dose: 100 mg Documented by: Sodium Chloride (Normal Saline) 1,000 mls @ 125 mls/hr IV ASDIRECTED [facility] Last Admin: 10/29/20 09:11 Dose: 125 mls/hr Documented by: Dextrose/Water (Dextrose 5% In Water) 1,000 mls @ 50 mls/hr IV ASDIRECTED [facility] Last Admin: 10/30/20 01:05 Dose: 50 mls/hr Documented by: Lactulose (Lactulose Soln 10 Gm/15 Ml 15 Ml Ud Cup) 10 gm PO BID [facility] Last Admin: 10/28/20 07:53 Dose: 10 gm Documented by: Lactulose (Lactulose Soln 10 Gm/15 Ml 15 Ml Ud Cup) 60 gm NGTUBE ONETIME ONE Stop: 10/28/20 08:18 Last Admin: 10/28/20 08:45 Dose: 60 gm Documented by: Lactulose (Lactulose Soln 10 Gm/15 Ml Ml 473 Ml Bottle) 60 gm PO TID [facility] Last Admin: 10/28/20 20:44 Dose: 60 gm Documented by: Lactulose (Lactulose Soln 10 Gm/15 Ml Ml 473 Ml Bottle) 30 gm PO TID [facility] Last Admin: 10/30/20 13:40 Dose: 30 gm Documented by: Potassium Chloride (Potassium Chloride 20 Meq Tab.Er) 40 meq PO ONETIME ONE Stop: 10/29/20 08:16 Last Admin: 10/29/20 08:39 Dose: 40 meq Documented by: Potassium Chloride (Potassium Chloride 20 Meq Tab.Er) 40 meq PO ONETIME ONE Stop: 10/30/20 08:46 Last Admin: 10/30/20 08:41 Dose: 40 meq Documented by: Potassium Chloride (Potassium Chloride 20 Meq Tab.Er) 40 meq PO ONETIME ONE Stop: 10/30/20 17:01 Last Admin: 10/30/20 17:39 Dose: 40 meq Documented by: - Exam General: Reports: Alert, Cooperative, No Acute Distress. Denies: Oriented Lungs: Reports: Clear to Auscultation, Normal Respiratory Effort Cardiovascular: Reports: Regular Rate, Regular Rhythm, No Murmurs GI/Abdominal Exam: Soft, Non-Tender, No Organomegaly, No Distention Back Exam: Reports: Normal Inspection, Full Range of Motion
== END 2020-10-31 12:55 | disposition home or self-care (01) | DRG 442 ==
LOC: JP.ED 06:20 → JP.ICU 08:19 → JP.MS 10-29 18:16
PROVIDERS: ADMIT Hospitalist; ATTEND Hospitalist
DX: T86.42 Liver transplant failure (principal); R41.0 Disorientation, unspecified; R05 Cough; E72.20 Disorder of urea cycle metabolism, unspecified; K72.90 Hepatic failure, unspecified without coma; Z94.4 Liver transplant status; F05 Delirium due to known physiological condition; E87.0 Hyperosmolality and hypernatremia; E11.9 Type 2 diabetes mellitus without complications; K74.60 Unspecified cirrhosis of liver; Z88.5 Allergy status to narcotic agent; Z79.52 Long term (current) use of systemic steroids; Z79.4 Long term (current) use of insulin; Z79.899 Other long term (current) drug therapy; Z88.6 Allergy status to analgesic agent
CPT/HCPCS: 36415; 71045 ×2; 80053; 80307; 81001; 82140; 83605; 85025; 85610; 85730; 99285; A9270; 82947; J1650; J1720; J1815; J1815-GY; J2405; J7030; J7060; J7507; J7512